=== PATIENT | female | born 1935 | race Caucasian/White ===

== ENCOUNTER 2020-06-22 11:29 | Inpatient (IN) | payer MEDICARE, BC ==
[2020-06-22] VITALS (14 sets, daily range): BP systolic 69–184; BP diastolic 41–61
[~2020-06-22] VITALS: Ht 152.4 cm; Wt 63.0 kg
--- NOTE | 2020-06-22 11:35 | NUR ---
[id number] FRM [facility] FOR COUGH/CONGESTION NOTED HYPOXIC ARRIVED ON NON REBREATHER AT 15L/MIN. RT AT BEDSIDE. PATIENT SUCTIONED BY RT. PLACED ON THE EXECUTIVE OFFICE MANAGER. VS STABLE.
--- NOTE | 2020-06-22 11:40 | NUR ---
IV LINE ESTABLISHED ON LEFT WRIST G20 AND RIGHT WRIST G20. BLOOD DRAWN AND SENT TO LAB.
--- NOTE | 2020-06-22 11:45 | NUR ---
PATIENTS O2 TITRATED DOWN TO 5LPM VIA NC WITH SPO2 OF 96%. PATIENT ANXIOUS, KEEP VERBALIZING SHE WANTS TO SLEEP. NEEDS ATTENDED. KEPT COMFORTABLE.
[2020-06-22] MEDS ORDERED: IV NS 0.9% 1,000 ML BAG IV ONE (12:00)
[2020-06-22] MEDS ORDERED: LORAZEPAM INJ 2 MG/ML VIAL ONE (12:05)
[2020-06-22] MEDS ORDERED: SERT25TA5 PO (12:09)
[2020-06-22] MEDS ORDERED: [UNRECOGNIZED DRUG - CODE] IJ (12:09)
[2020-06-22] MEDS ORDERED: BISA10SU61 RC (12:09)
[2020-06-22] MEDS ORDERED: ZINC220C6 PO (12:09)
[2020-06-22] MEDS ORDERED: MAGN400O6 PO (12:09)
[2020-06-22] MEDS ORDERED: L.AC1CAP6 PO (12:09)
[2020-06-22] MEDS ORDERED: SENN-175 PO (12:09)
[2020-06-22] MEDS ORDERED: LOPE2TAB25 PO (12:09)
[2020-06-22] MEDS ORDERED: ASCO500C17 PO (12:09)
[2020-06-22] MEDS ORDERED: AMIN887L BC (12:09)
[2020-06-22] MEDS ORDERED: ALPR0.5T8 PO (12:09)
[2020-06-22] MEDS ORDERED: GUAI-1189 PO (12:09)
[2020-06-22] MEDS ORDERED: LEVO50TA8 PO (12:09)
[2020-06-22] MEDS ORDERED: LIDO28.310 TP (12:09)
[2020-06-22] MEDS ORDERED: POLY17PO4 PO (12:09)
[2020-06-22] MEDS ORDERED: MULT-447 PO (12:09)
[2020-06-22] MEDS ORDERED: PRED5TAB48 PO (12:09)
[2020-06-22] MEDS ORDERED: HYDR-4384 PO (12:09)
[2020-06-22] MEDS ORDERED: IPRA4AER IH (12:09)
[2020-06-22] MEDS ORDERED: APIX2.5T PO (12:09)
[2020-06-22] MEDS ORDERED: NA P133E RC (12:09)
[2020-06-22] MEDS ORDERED: TRAM50TA2 PO (12:09)
[2020-06-22] MEDS ORDERED: TEMA15CA PO (12:09)
[2020-06-22] MEDS ORDERED: MELA1TAB9 PO (12:09)
[2020-06-22] MEDS ORDERED: DILT240C88 PO (12:09)
[2020-06-22] MEDS ORDERED: ACET325T53 PO (12:09)
--- NOTE | 2020-06-22 12:10 | NUR ---
COVID ANTIGEN SWAB SENT TO LAB.
[2020-06-22] MEDS ORDERED: LORAZEPAM INJ 2 MG/ML VIAL IV ONE (12:30)
--- NOTE | 2020-06-22 12:30 | NUR ---
URINE COLLECTED FROM WEISS AND SENT TO LAB.
[2020-06-22 12:43] LABS: BASOPHILS # (AUTO) 0.1 /CMM (0.0-0.2); BASOPHILS % (AUTO) 0.2 % (0.0-2.0); EOSINOPHILS % (AUTO) 0.9 % (0.0-6.0); HEMATOCRIT 21 % (33-45); LYMPHOCYTES # (AUTO) 0.5 /CMM (0.8-4.8); LYMPHOCYTES % (AUTO) 1.9 % (20.0-44.0); MEAN CORPUSCULAR HGB CONC 32 g/dl (31.0-36.0); MEAN CORPUSCULAR VOLUME 92 fL (82-100); MONOCYTES % (AUTO) 3.9 % (2.0-12.0); NEUTROPHILS # (AUTO) 24.4 /CMM (1.8-8.9); NEUTROPHILS % (AUTO) 93.1 % (43.0-81.0); PLATELET COUNT (AUTO) 443 /CMM (150-450); RED BLOOD CELL COUNT(AUTO) 2.31 MIL/uL (4.0-5.2); WHITE BLOOD COUNT (AUTO) 26.2 K/uL (4.3-11.0)
[2020-06-22 12:48] LABS: CALCIUM, SERUM 9.2 mg/dL (8.5-10.1); CARBON DIOXIDE 28 mmol/L (21-32); CHLORIDE 96 mmol/L (98-107); CREATININE 1.8 mg/dL (0.6-1.3); GLUCOSE 155 mg/dL (74-106); POTASSIUM 4.4 mmol/L (3.5-5.1); SODIUM SERUM 131 mmol/L (136-145)
[2020-06-22 12:50] LABS: UREA NITROGEN, BLOOD 129 mg/dL (7-18)
[2020-06-22 12:58] LABS: HEMOGLOBIN 6.8 g/dL (11.5-14.8)
[2020-06-22] MEDS ORDERED: VANCOMYCIN 1 GM in IV D5W 250 ML IV ONE (13:00)
[2020-06-22] MEDS ORDERED: LEVOFLOXACIN 750 MG /D5W 150ML 150 ML IV ONE (13:00)
--- NOTE | 2020-06-22 13:00 | NUR ---
EPIC TECHNICAL EDITOR PAGED.
[2020-06-22 13:02] LABS: ALANINE AMINOTRANSFERASE 44 U/L (12-78); ALBUMIN 2.1 g/dL (3.4-5.0); ALKALINE PHOSPHATASE 200 U/L (46-116); ASPARTATE AMINOTRANSFERASE 45 U/L (15-37); BILIRUBIN,DIRECT 0.1 mg/dL (0.0-0.2); BILIRUBIN,TOTAL 0.3 mg/dL (0.2-1.0); TOTAL PROTEIN, SERUM 6.2 g/dL (6.4-8.2)
[2020-06-22 13:11] LABS: LYMPHOCYTES % (MANUAL) 2 % (16-48); MONOCYTES % (MANUAL) 4 % (0-11.0); NEUTROPHILS % (MANUAL) 94 (42-76)
[2020-06-22 13:15] LABS: BILIRUBIN,URINE NEGATIVE (NEGATIVE); BLOOD, URINE SMALL Ery/uL (NEGATIVE); COLOR,URINE YELLOW (YELLOW); LEUKOCYTE ESTERASE ,URINE LARGE (NEGATIVE); NITRITE, URINE NEGATIVE (NEGATIVE); PH,URINE 5.5 (5.0-8.0); PROTEIN,URINE 30 mg/dl (NEGATIVE); UGLUCOSE NEGATIVE (NEGATIVE); UROBILINOGEN,URINE 0.2 EU/dL (0.2)
--- NOTE | 2020-06-22 13:22 | NUR ---
admit to room 203
--- NOTE | 2020-06-22 13:42 | NUR ---
REPORT GIVEN TO KAMRAN BARBOUR.
[2020-06-22 13:45] LABS: BACTERIA,URINE Moderate /HPF (None Seen); SQUAMOUS EPITHELIAL CELL,UR Moderate /HPF (None Seen); WBC,URINE TOO NUMEROUS TO COUN /HPF (0-3)
--- NOTE | 2020-06-22 14:10 | NUR ---
PT ARRIVED ONTO UNIT VIA BED WITH ER NURSES. PHONE REPORT GIVEN. ROOM EQUIPED WITH IV PUMPS, POLE, SUCTION EQUIPMENT, OXYGEN EQUIPMENT, TELE MONITOR AND LEADS. PT A/OX2. ANXIOUS AND NEEDS. SKIN ASSESS. PHOTOS TAKEN. SKIN WARM FLUSHED. WEISS INTACT. IVS PROTECTED WITH ARM SLEEVES. AWAITING ORDERS. WILL MONITOR OXYGENATION AND RESPIRATORY STATUS. TURN Q2H.
--- NOTE | 2020-06-22 14:18 | NUR ---
PATIENT ENDORSED TO KAMRAN RN, TRANSFERRED THE PATIENT VIA ACLS PROTOCOL. NO DISTRESS NOTED.
--- NOTE | 2020-06-22 14:19 | NUR ---
IV ANTIBIOTICS INFUSING TO FLOOR.
--- NOTE | 2020-06-22 14:47 | NUR ---
BED SIDE REPORT GIVEN TO EVELIN. PT INTUBATED DURING MANAGER UNIVERSITY. BS 131. 200 ML THICK RED SECRETIONS SUCTIONED. ENDOSCOPY SPECIALTY TECHNICIAN OSVALDO UPDATED TO SITUATION. FAMILY UPDATED TO SITUATION.
[2020-06-22] MEDS ORDERED: IV NS 0.9% 1,000 ML IV PRN (17:00)
[2020-06-22] MEDS ORDERED: ZOLPIDEM TARTRATE 5 MG TABLET PO PRN (17:00)
[2020-06-22] MEDS ORDERED: ONDANSETRON HCL/PF 4 MG/2 ML VIAL IVP PRN (17:00)
[2020-06-22] MEDS ORDERED: ALBUTEROL HALF STRENGTH 1.25 MG/3 ML VIAL.NEB NEB PRN (17:00)
[2020-06-22] MEDS ORDERED: Z GUARD REMEDY 2 OZ OINT TP PRN (17:00)
[2020-06-22] MEDS ORDERED: IPRATROPIUM NEB FS 0.5 MG/2.5 ML AMPUL.NEB NEB PRN (17:00)
[2020-06-22] MEDS ORDERED: FUROSEMIDE 40 MG/4 ML VIAL IV SCH (17:30)
[2020-06-22 18:14] LABS: ABG BASE EXCESS -1.4 mmol/L; ABG OXYGEN SATURATION 99.5 % (92.0-98.5); ABG PCO2 55.9 mmHg (35.0-45.0); ABG PH 7.278 (7.350-7.450); ABG PO2 168.1 mmHg (75.0-100.0); COHb 1.6 % (0.5-1.5); MetHb 0.3 % (0.0-1.5); O2Hb 97.6 % (94.0-97.0); SITE, ABG Right Radial; VENT MODE, BG AC 14 400 100% +5
--- NOTE | 2020-06-22 19:09 | NUR ---
WEAPONS SPECIALIST Patient intubated on 2nd floor by ER MD Delvalle @0333 due to report of desat to SPO2 70s. post intubation CXR done. ETT 7.5 @lip, AC 14 TV 400 FiO2 100%, PEEP 5. Order for ABG 15min after done per Dr. Delvalle order -> RT received orders for vent changes after ABG of titration FiO2 -> 80% and follow up ABG in two hrs @2014, order placed. small amount of blood suctioned from ETT. afib HR 120s-130 Mira Castaneda PICKED EDGE SEWING MACHINE OPERATOR aware stating patient has PO meds and she will reconcile. normotensive. temp 100.1F. PEG in place. lópez draining cloudy yellow urine. Sacral wound, protected, wound consult. L Leg edema 1+. Restraints on as patient waking up trying to pull ETT. (A/Ox2-3 per report). Mira aware. L wrist & L FA intact. midline order placed, nursing sup aware. propofol for sedation. type screen #1 complete, #2 in process laborer pie bakery at bedside. consent endorsed. 1 U blood ordered for hgb 6.8. stool OB order endorsed. patient deep suctioned by RT, small amount of blood draining from nostrils.
--- NOTE | 2020-06-22 19:15 | NUR ---
FULFILLMENT MAIL CLERK NOTES: RECEIVED INTUBATED PT IN BED RESTING COMFORTABLY. PATIENT IN NO S/SX OF ACUTE DISTRESS AT THIS TIME. NO SOB NOTED. PATIENT'S BREATHING IS EVEN AND UNLABORED. PATIENT ON MECHANICAL VENT; SETTINGS PRESCRIBED; PT TOLERATED WELL. AMBU BAG AT BED SIDE ALARMS SET PER PROTOCOL AND AUDIBLE. VENT PLUGGED IN TO RED OUTLET. NO DISTRESS NOTED. PATIENT ON TELE MONITORING READING SINUS TACHY HR IS @120s AT THE TIME OF RECEIVED. PATIENT HAS G TUBE FLUSHING AND PATENT; SITE CLEAN DRY AND INTACT; NO RESIDUAL NOTED; CLAMPED. PT IN NPO EXECEPT MEDS AT THIS TIME. NOTED IV SITE ON R WRIST AND R FA ; BOTH PATENT, INTACT AND FLUSHING WELL; NO S/S OF INFECTION OR INFILTRATION. WITH ONGOING DIPRIVAN @ 5MCG/KG/MIN RUNNING PER PROTOCOL. PATIENT HAS WEISS CATH IN PLACE, MINIMAL YELLOW CLOUDY URINE OUTPUT. BILATERAL SOFT WRIST RESTRAINTS IN PLACE, ASSESSED PER PROTOCOL. SAFETY MEASURES HAVE BEEN PROVIDED AND IMPLEMENTED. PATIENT BED ALARM IS ON. HEAD OF BED ELEVATED. BED IS LOCKED, IN LOWEST POSITION AND SIDE RAILS UP. CALL LIGHT WITHIN REACH OF THE PATIENT. APPLICABLE ISOLATION PRECAUTIONS IN PLACE. WILL CONTINUE TO MONITOR AND REASSESS FOR ANY CHANGES AND WILL CARRY OUT ANY ONGOING AND ACTIVE MD ORDER.
[2020-06-22] MEDS: PROPOFOL 100 ML IV PRN (19:40)
--- NOTE | 2020-06-22 19:40 | NUR ---
RN NOTES SCANNED MEDICATION ( DIPRIVAN/PROPFOL) @1940; MORNING SHIFT RN FAILED TO SCAN MEDICATION. RECEIVED PT WITH ONGOING DIPRIVAN INFUSION AT 5MC/KG/MIN. AWS SOLUTION ARCHITECT MADE AWARE. WILL CONTINUE TO MONITOR AND REASSESS FOR ANY CHANGES WITHIN THE SHIFT.
--- NOTE | 2020-06-22 19:47 | NUR ---
RN NOTES CALLED LAB SPOKE WITH MEME, CONFIRMED AND VERIFIED THAT THEY HAVE RECEIVED THE ORDER OF 1 UNIT OF PRBC, BUT THEY WILL NEED A RE-TYPE WHICH IS WILL BE IN PROCESS. RN ACKNOWLEDGED. SEM MANAGER MADE AWARE.
[2020-06-22] MEDS: PIPERACILLIN /TAZOBACTAM 3.375 G in IV D5W 100 ML IV SCH (20:29)
[2020-06-22 20:56] LABS: ABG BASE EXCESS -0.4 mmol/L; ABG OXYGEN SATURATION 99.2 % (92.0-98.5); ABG PCO2 39.3 mmHg (35.0-45.0); ABG PH 7.407 (7.350-7.450); ABG PO2 141.6 mmHg (75.0-100.0); AaDO2 387.5 mmHg; COHb 1.4 % (0.5-1.5); MetHb 0.3 % (0.0-1.5); O2Hb 97.5 % (94.0-97.0); PEEP,BG 5 cm H2O; SITE, ABG Right Brachial; VENT MODE, BG AC 14 400 80% +5; VT, ABG 400 mL
--- NOTE | 2020-06-22 21:50 | NUR ---
RN NOTES NOTED THAT PT'S IV ACCESS/LINE ON THE R WRIST IS LEAKING. CUSTOMER SERVICES SUPERVISOR MADE AWARE. WILL FACILITATE REMOVAL OF R WRIST IV ACCESS AND WILL FACILITATE INSERTION OF IV ACCESS ON THE L WRIST. INSERTION DONE AT L WRIST # 20. MADE SURE LINE IS PATENT AND FLUSHING WELL. CUSTOMER SERVICES SUPERVISOR MADE AWARE. WILL CONTINUE TO MONITOR AND ASSESS THROUGHOUT THE END OF SHIFT.
--- NOTE | 2020-06-22 22:00 | NUR ---
RN NOTES NOTED PT'S TEMP 100.1@2200. COOLING MEASURES WILL BE PROVIDED AND WILL SECURE FOR PRN MEDS FROM KILO REGALADO. CHERRY DIPPER MADE AWARE. WILL RE-EVALUATE AFTER 30 MINUTES- 1 HOUR. WILL CONTINUE TO MONITOR AND REASSESS FOR ANY CHANGES THROUGHOUT THE SHIFT.
--- NOTE | 2020-06-22 22:10 | NUR ---
RN NOTES CALLED AND COMMUNICATED WITH KILO REGALADO, ADVISE THAT PT'S TEMPT IS AT 100.1 , KILO REGALADO SAID TO PUT ON HOLD BLOOD TRANSFUSION AND GIVE TYLENOL 500MG/1 TAB PRN Q6H AND TO CONTINUE COOLING MEASURES. CLIENT DELIVERY SPECIALIST MADE AWARE. WILL CARRY OUT ORDER AND WILL CONTINUE TO MONITOR AND REASSESS FOR ANY CHANGES THROUGHOUT THE SHIFT.
[2020-06-22] MEDS ORDERED: ACETAMINOPHEN ES 500 MG TABLET PO PRN (22:30)
--- NOTE | 2020-06-22 23:15 | NUR ---
RN NOTES ADMINISTERED DUE MEDS ( PRN MEDS OF TYLENOL 500MG/1TAB) VIA G TUBE, PRIOR TO ADMINISTRATION RN CHECK FOR PATENCY VIA FLUSHING. G TUBE NOTED TO BE INTACT, PATENT AND FLUSHING WELL. BLADIMIR BARBOUR MADE AWARE. WILL CONTINUE TO MONITOR AND REASSESS FOR ANY CHANGES THROUGHOUT THE SHIFT Addendum: 06/23/20 at 0112 by MARIO KILGORE RN AT 2330 PT'S TEMP IS AT 99.0 WILL CONTINUE TO PROVIDE COOLING MEASURE AND CONTINUE TO MONITOR. BLADIMIR BARBOUR MADE AWARE
[2020-06-23] VITALS (87 sets, daily range): BP systolic 83–139; BP diastolic 23–75
--- NOTE | 2020-06-23 | NUR ---
KM NOTES NOTED PT'S TEMP 100@0000. WILL CONTINUE TO PROVIDE COOLING MEASURES BLADIMIR BARBOUR MADE AWARE. WILL RE-EVALUATE AFTER 30 MINUTES- 1 HOUR.WILL CONTINUE TO MONITOR AND REASSESS FOR ANY CHANGES THROUGHOUT THE SHIFT. Addendum: 06/23/20 at 0158 by MARIO KILGORE RN AT 0100 PT'S TEMP IS AT 99.5 WILL CONTINUE TO PROVIDE COOLING MEASURE AND CONTINUE TO MONITOR. BLADIMIR BARBOUR MADE AWARE
[2020-06-23] MEDS: PROPOFOL 100 ML IV PRN (03:01)
--- NOTE | 2020-06-23 04:21 | NUR ---
RN NOTES INFORMED KILO REGALADO THAT PT'S TEMP @0400 IS AT 98.4, AND IF SHE WANTS TO PROCEED WITH THE BT OF 1 PRBC AT THIS TIME. SHE SAID OK TO PROCEED WITH THE BLOOD TRANSFUSION AND KEEP MONITORING. COAGULATING BATH OPERATOR MADE AWARE. WILL CARRY OUT ORDERED.
--- NOTE | 2020-06-23 05:10 | NUR ---
RN NOTES STARTED 1 BAG OF PRBC ORDERED AND ADMINISTERED PER PROTOCOL. INITIAL VITAL SIGNS TAKEN AND RECORDED; WILL CONTINUE TO MONITOR FOR ANY BLOOD TRANSFUSION REACTION AND ADDRESS NEEDED FRONT END SOFTWARE DEVELOPER MADE AWARE.
--- NOTE | 2020-06-23 05:50 | NUR ---
RT NOTE Pt rec'd orally intubated via ETT #7.5 secured @ 23CM at the upper lip line. Pt on [facility] vent on AC mode. Pt shows no signs of resp distress or sob. ETT is patent and secured. sx'd for thick large amt of yellow secretions. Alarms are set and audible. vent plugged into red outlet. ambu bag bedside. Will continue to monitor closely. Addendum: 06/23/20 at 0551 by HANNY MAC RT Amended: Links added.
[2020-06-23 05:53] LABS: BASOPHILS % (AUTO) 0.1 % (0.0-2.0); LYMPHOCYTES # (AUTO) 0.2 /CMM (0.8-4.8); LYMPHOCYTES % (AUTO) 0.6 % (20.0-44.0); MEAN CORPUSCULAR HGB CONC 33 g/dl (31.0-36.0); MEAN CORPUSCULAR VOLUME 91 fL (82-100); MONOCYTES # (AUTO) 0.5 /CMM (0.1-1.30); MONOCYTES % (AUTO) 1.7 % (2.0-12.0); NEUTROPHILS # (AUTO) 30.2 /CMM (1.8-8.9); NEUTROPHILS % (AUTO) 97.6 % (43.0-81.0); PLATELET COUNT (AUTO) 330 /CMM (150-450); RED BLOOD CELL COUNT(AUTO) 2.02 MIL/uL (4.0-5.2)
[2020-06-23 05:55] LABS: WHITE BLOOD COUNT (AUTO) 30.9 K/uL (4.3-11.0)
--- NOTE | 2020-06-23 05:55 | NUR ---
RN NOTES RECEIVED CALL FROM LAB, SPOKE WITH DIONICIO CRITICAL VALUE FOR WBC 30.9. WILL ADVISE KILO REGALADO TO SECURE FOR ANY NECESSARY ORDER. TRUSS DESIGNER MADE AWARE.
[2020-06-23 05:56] LABS: HEMATOCRIT 18 % (33-45)
--- NOTE | 2020-06-23 05:56 | NUR ---
RN NOTES CALLED AND COMMUNICATED WITH KILO REGALADO, ENDORSED PT'S CRITICAL VALUE FOR WBC@30.9. ADVISED HER THAT PTS ALREADY IN ZOSYN AND WILL BE STARTING VANCO TODAY THIS 9AM. KILO REGALADO SAID TO START VANCO THIS AM, THEN F/U WITH ID AND RECHECK CBC THIS AFTERNOON. WILL INFORM FINAL INSPECTOR AND TESTER AND WILL CARRY OUR ORDER REQUESTED.
[2020-06-23 06:07] LABS: CALCIUM, SERUM 8.4 mg/dL (8.5-10.1); CARBON DIOXIDE 25 mmol/L (21-32); CHLORIDE 95 mmol/L (98-107); GLUCOSE 89 mg/dL (74-106); PHOSPHORUS 2.3 mg/dL (2.5-4.9); POTASSIUM 4.8 mmol/L (3.5-5.1); SODIUM SERUM 128 mmol/L (136-145)
[2020-06-23 06:10] LABS: UREA NITROGEN, BLOOD 130 mg/dL (7-18)
[2020-06-23 06:14] LABS: CHOLESTEROL 87 mg/dL (<200); HDL CHOLESTEROL 47 mg/dL (40-60); LDL 31 mg/dL (0-99); TRIGLYCERIDES 91 mg/dL (30-150)
[2020-06-23] MEDS ORDERED: PHENYLEPHRINE 50 MG in IV NS 0.9% 245 ML IV PRN (06:30)
[2020-06-23] MEDS: HYDROCORTISONE SOD SUCCINATE 100 MG/2 ML VIAL IV SCH ×3 (06:38→20:12)
--- NOTE | 2020-06-23 06:45 | NUR ---
RN NOTES RECEIVED CALL FROM DR. SOLER PER LAW OFFICE MANAGER, DR. SOLER WANTS TO START NEOSYNEPHERINE 50MG IN IV .9NS 250ML 245ML PER MD, NEED TO START PT BP <100 (SYSTOLIC). ORDER PLACED AND WILL CARRY OUT ORDERED. CALLED KILO REGALADO FOR HEADS UP. KILO REGALADO ACKNOWLEDGED. LAW OFFICE MANAGER WELL AWARE OF THIS MATTER.
--- NOTE | 2020-06-23 07:05 | NUR ---
AGRICULTURAL SALES REPRESENTATIVE NOTES RECEIVED PT ON BED, INTUBATED AND SEDATED ON DIPRIVAN AT 40MCG/KG/HR AT THIS TIME , TOLERATING VENT SETTING WELL, O2 SAT WNL , NO SIGNS OF ACUTE DISTRESS NOTED, BREATHING EVEN AND UNLABORED. HR IN 120'S, PT IS NPO EXCEPTS MEDS. WEISS DRAINING TO GRAVITY, SIDE RAILS UPx3, BED LOCKED AND IN LOWEST POSITION , CONTINUE TO MONITOR .
--- NOTE | 2020-06-23 07:18 | NUR ---
RN NOTES ENDED INFUSION AT 0717, NO TRANSFUSION REACTION NOTED. VITAL SIGNS TAKEN AND RECORDED. LIFE SCIENTIST MADE AWARE. WILL CONTINUE TO MONITOR AND REASSESS FOR ANY TRANSFUSION REACTION POST PROCEDURE.WILL ENDORSE TO AM SHIFT TO WATCH OUT FOR ANY BT REACTIONS
[2020-06-23 07:26] LABS: BAND % (MANUAL) 10 % (0.0-5.0); LYMPHOCYTES % (MANUAL) 2 % (16-48); MONOCYTES % (MANUAL) 1 % (0-11.0); NEUTROPHILS % (MANUAL) 87 (42-76)
--- NOTE | 2020-06-23 07:32 | NUR ---
TRAVELING PHLEBOTOMIST NOTES PATIENT RESTING IN BED COMFORTABLY,PT STILL SEDATED WELL WITH 40 MCG/KG/M OF DIPRIVAN. TOLERATING VENT SETTINGS ORDERED. NO SIGNS OF ACUTE DISTRESS. BREATHING EVEN AND UNLABORED. TELE MONITORS READING ST 120s. VITAL SIGNS TAKEN AND RECORDED SCHEDULED. PT STILL ON NPO EXECEPT MEDS. ALL IV LINES REMAINED PATENT AND INTACT WITHIN END OF SHIFT. WILL ENDORSE TO AM SHIFT TO F/U WITH ID PER KILO REGALADO AND TO START TO NEOSYNEPHERINE 50MG IN IV .9NS 250ML 245ML PER ORDER OF DR. SOLER FOR BP <100 ( SYSTOLIC). SAFETY PRECAUTIONS IN PLACE WITH BED IN LOWEST POSITION, CALL LIGHT WITHIN REACH, BREAKS ON, SIDE RAILS UP. ALL NEEDS ATTENDED TO; SHIFT ASSESSMENT/BEDBATH/SKIN/WOUND CARE DONE. PATIENT KEPT CLEAN AND DRY. WILL ENDORSE TO ONCOMING SHIFT FOR NORIS WITH ALL PERTINENT INFO REGARDING PATIENT STATUS.
[2020-06-23] MEDS ORDERED: Sodium Phosphate 30 MMOL in IV NS 0.9% 250 ML IV SCH (08:00)
--- NOTE | 2020-06-23 08:02 | NUR ---
WOUND CARE CONSULT: REVIEWED CHART, NURSING DOCUMENTATION AND PHOTOS WHICH INDICATE SACRAL WOUND AND RT LOWER LEG WOUND, PRESENT ON ADMISSION. RECOMMEND SURGICAL AND DPM CONSULTS. DR URIAS AND DR BOYCE NOTIFIED OF CONSULT REQUESTS. RECOMMENDATIONS MADE FOR SKIN PROTECTION. DISCUSSED WITH NURSING STAFF. MD IN AGREEMENT WITH PLAN OF CARE. PT IS ON WARNERS ISOFLEX LOW AIRLOSS BED.
[2020-06-23] MEDS: PHENYLEPHRINE 50 MG in IV NS 0.9% 245 ML IV PRN ×2 (08:06→21:07)
[2020-06-23] MEDS: PIPERACILLIN /TAZOBACTAM 3.375 G in IV D5W 100 ML IV SCH ×2 (08:24→20:00)
[2020-06-23] MEDS ORDERED: VANCOMYCIN HCL 0.75 GM in IV D5W 250 ML IV SCH (09:00)
[2020-06-23] MEDS ORDERED: ETOMIDATE 2 MG/ML VIAL IV ONE (09:12)
[2020-06-23] MEDS ORDERED: SUCCINYLCHOLINE CHLORIDE 20 MG/ML VIAL IV ONE (09:12)
[2020-06-23] MEDS: PANTOPRAZOLE 40 MG VIAL IV SCH (09:13)
[2020-06-23 09:47] LABS: BASOPHILS # (AUTO) 0.3 /CMM (0.0-0.2); BASOPHILS % (AUTO) 0.6 % (0.0-2.0); HEMATOCRIT 26 % (33-45); HEMOGLOBIN 8.1 g/dL (11.5-14.8); LYMPHOCYTES # (AUTO) 0.2 /CMM (0.8-4.8); LYMPHOCYTES % (AUTO) 0.6 % (20.0-44.0); MEAN CORPUSCULAR HGB CONC 32 g/dl (31.0-36.0); MEAN CORPUSCULAR VOLUME 94 fL (82-100); MONOCYTES # (AUTO) 0.7 /CMM (0.1-1.30); MONOCYTES % (AUTO) 1.7 % (2.0-12.0); NEUTROPHILS # (AUTO) 39.9 /CMM (1.8-8.9); NEUTROPHILS % (AUTO) 97.1 % (43.0-81.0); PLATELET COUNT (AUTO) 325 /CMM (150-450); RED BLOOD CELL COUNT(AUTO) 2.73 MIL/uL (4.0-5.2)
[2020-06-23 09:59] LABS: WHITE BLOOD COUNT (AUTO) 41.1 K/uL (4.3-11.0)
--- NOTE | 2020-06-23 10:51 | NUR ---
RN NOTES DR ROCHA NOTIFED REGARDING WBC 41.1, NO NEW ORDER GIVEN , CONTINUE TO MONITOR
[2020-06-23 11:31] LABS: LYMPHOCYTES % (MANUAL) 2 % (16-48); MONOCYTES % (MANUAL) 3 % (0-11.0); NEUTROPHILS % (MANUAL) 95 (42-76)
[2020-06-23] MEDS: PROPOFOL 10MG/ML 50ML 50 ML IV PRN ×5 (12:20→22:26)
--- NOTE | 2020-06-23 14:46 | NUR ---
RN NOTES PT HR STILL IN 120-130'S, CRYSTAL /KURT , DR. SOLER NOTIFED, NEW ORDER RECEIVED ,
[2020-06-23] MEDS ORDERED: AMIODARONE 150 MG in IV D5W 100 ML IV ONE (15:00)
[2020-06-23] MEDS: AMIODARONE 450 MG in IV D5W 250 ML IV PRN ×2 (15:57→23:58)
--- NOTE | 2020-06-23 18:00 | NUR ---
RN NOTES PT REMAINS INTUBATED AND SEDATED , ON DIPRIVAN AT 40 MCG/KG/MIN, SAULO AT 1 MCG/KG/ MIN , AMIO AT 1MG/MIN RUNNING VIA R UPPER ARM PICC LINE SITE, SR UP X3, CALL LIGHT WITHIN EASY REACH, BED LOCKED AND IN LOWEST POSITION, WILL ENDORSE TO APPLICATION ASSISTANT NURSE FOR CONTINUITY OF CARE .
[2020-06-23 19:24] LABS: CREATININE, URINE < 13.0 MG/DL (30.0-125.0); URINE SODIUM, RANDOM 11 mmol/l (40-220); URINE TOTAL PROTEIN 35.1 mg/dL (0-11.9)
[2020-06-23 19:48] LABS: BILIRUBIN,URINE NEGATIVE (NEGATIVE); BLOOD, URINE MODERATE Ery/uL (NEGATIVE); COLOR,URINE YELLOW (YELLOW); LEUKOCYTE ESTERASE ,URINE TRACE (NEGATIVE); NITRITE, URINE NEGATIVE (NEGATIVE); PH,URINE 5.5 (5.0-8.0); PROTEIN,URINE TRACE mg/dl (NEGATIVE); UGLUCOSE NEGATIVE (NEGATIVE); UROBILINOGEN,URINE 0.2 EU/dL (0.2)
--- NOTE | 2020-06-23 19:55 | NUR ---
ICU/OVERNIGHT ASSOCIATE CHEM WAS DONE FOR POTASSIUM LEVEL. DUE TO POTASSIUM LEVEL BEING 3.2. AWAIT FOR RESULTS. Addendum: 06/23/20 at 2231 by ZACHARY NELSONN WRONG PT
[2020-06-23] MEDS: DAKINS QUARTER STRENGTH (0.125%) 480 ML BOTTLE TOP SCH (20:25)
--- NOTE | 2020-06-23 20:30 | NUR ---
ICU/BEEF FARMER POTASSIUM LEVEL WAS 3.6, NO NEED TO GIVE REPLACEMENT. Addendum: 06/23/20 at 2232 by ZACHARY MARADIAGA LVN WRONG PT
[2020-06-23 20:45] LABS: BACTERIA,URINE RARE /HPF (None Seen); SQUAMOUS EPITHELIAL CELL,UR 0-2 /HPF (None Seen)
[2020-06-23 20:46] LABS: YEAST,URINE Few /HPF (None Seen)
[2020-06-23 21:03] LABS: EOSINOPHIL,URINE None Seen
--- NOTE | 2020-06-23 21:30 | NUR ---
ICU/LPN PER DIEM NOTIFED CHARGE NURSE THAT PT'S BLOOD PRESSURE WAS STABLE 120'S, PT CURRENTLY ON SAULO AT 1MCG, THIS WILL BE LOWERED DOWN TO 0.9MCG. WILL CONTINUE TO MONITOR THIS PT AND HER BLOOD PRESSURE.
--- NOTE | 2020-06-23 22:02 | NUR ---
ICU/LAPPER CONSENT WAS OBTAINED FROM DAUGHTER FOR SERIAL SACRAL DEBREMENT, WITH WITNESS NURSE RENITA Green. THIS WAS PLACED IN THE CHART
--- NOTE | 2020-06-23 22:34 | NUR ---
ICU/BARREL LINER AMI WAS DECREASED DOWN TO 0.5 FROM 1MG. WILL CONTINUE TO MONITOR THIS PT AND HER HEART RATE.
--- NOTE | 2020-06-23 23:45 | NUR ---
RT NOTE Pt rec'd orally intubated via ETT #7.5 secured @ 23CM at the upper lip line. Pt on [facility] vent on AC mode. Pt shows no signs of resp distress or sob. ETT is patent and secured. sx'd for thick mod amt of yellow secretions. Alarms are set and audible. vent plugged into red outlet. ambu bag bedside. Will continue to monitor closely. Addendum: 06/23/20 at 2345 by HANNY MAC RT Amended: Links added.
[2020-06-24] VITALS (82 sets, daily range): BP systolic 91–133; BP diastolic 38–76
[2020-06-24] MEDS: PROPOFOL 10MG/ML 50ML 50 ML IV PRN ×7 (02:09→21:10)
[2020-06-24 04:21] LABS: BASOPHILS # (AUTO) 0.1 /CMM (0.0-0.2); BASOPHILS % (AUTO) 0.2 % (0.0-2.0); HEMATOCRIT 23 % (33-45); HEMOGLOBIN 7.4 g/dL (11.5-14.8); LYMPHOCYTES # (AUTO) 0.2 /CMM (0.8-4.8); LYMPHOCYTES % (AUTO) 0.5 % (20.0-44.0); MEAN CORPUSCULAR HGB CONC 32 g/dl (31.0-36.0); MEAN CORPUSCULAR VOLUME 91 fL (82-100); MONOCYTES # (AUTO) 0.8 /CMM (0.1-1.30); MONOCYTES % (AUTO) 1.9 % (2.0-12.0); NEUTROPHILS # (AUTO) 42.6 /CMM (1.8-8.9); NEUTROPHILS % (AUTO) 97.4 % (43.0-81.0); PLATELET COUNT (AUTO) 354 /CMM (150-450); RED BLOOD CELL COUNT(AUTO) 2.52 MIL/uL (4.0-5.2)
[2020-06-24 04:35] LABS: WHITE BLOOD COUNT (AUTO) 43.8 K/uL (4.3-11.0)
[2020-06-24 04:37] LABS: ALANINE AMINOTRANSFERASE 35 U/L (12-78); ALBUMIN 1.6 g/dL (3.4-5.0); ALKALINE PHOSPHATASE 89 U/L (46-116); ASPARTATE AMINOTRANSFERASE 46 U/L (15-37); BILIRUBIN,TOTAL 0.5 mg/dL (0.2-1.0); CALCIUM, SERUM 8.4 mg/dL (8.5-10.1); CARBON DIOXIDE 23 mmol/L (21-32); CHLORIDE 97 mmol/L (98-107); GLUCOSE 107 mg/dL (74-106); MAGNESIUM 2.3 mg/dL (1.8-2.4); PHOSPHORUS 5.2 mg/dL (2.5-4.9); POTASSIUM 4.3 mmol/L (3.5-5.1); SODIUM SERUM 132 mmol/L (136-145); TOTAL PROTEIN, SERUM 5.6 g/dL (6.4-8.2)
[2020-06-24 04:38] LABS: UREA NITROGEN, BLOOD 124 mg/dL (7-18)
[2020-06-24 04:41] LABS: CREATINE KINASE, TOTAL 94 U/L (26-192)
[2020-06-24] MEDS: HYDROCORTISONE SOD SUCCINATE 100 MG/2 ML VIAL IV SCH ×3 (04:54→21:10)
[2020-06-24 05:02] LABS: BAND % (MANUAL) 11 % (0.0-5.0); LYMPHOCYTES % (MANUAL) 1 % (16-48); MONOCYTES % (MANUAL) 1 % (0-11.0); NEUTROPHILS % (MANUAL) 87 (42-76)
--- NOTE | 2020-06-24 06:04 | NUR ---
ICU/LANGUAGE THERAPIST STOOL SENT IN FOR STOOL OB, AWAIT FOR RESULTS.
--- NOTE | 2020-06-24 06:12 | NUR ---
ICU/GERIATRIC SOCIAL WORK PROFESSOR THROUGHOUT THE SHIFT CHARGE NURSE WAS ABLE TO TITRATE DOWN SAULO FROM 1.0MCG TO 0.3MCG. WILL CONTINUE TO MONITOR THIS PT AND HER BLOOD PRESSURE.
--- NOTE | 2020-06-24 07:05 | NUR ---
RN NOTES RECEIVED PT ON BED, INTUBATED AND SEDATED ON DIPRIVAN AT 40MCG/KG/HR AT THIS TIME , TOLERATING VENT SETTING WELL, O2 SAT WNL , NO SIGNS OF ACUTE DISTRESS NOTED, BREATHING EVEN AND UNLABORED. HR IN LOW 100'S , SAULO AT .3 MCG/KG/MIN , AMIO AT .5 MG/MIN RUNNING VIA R UPPER ARM PICC LINE , SITE CLEAN ,DRY AND INTACT, PT IS NPO EXCEPTS MEDS. WEISS DRAINING TO GRAVITY, SIDE RAILS UPx3, BED LOCKED AND IN LOWEST POSITION , CONTINUE TO MONITOR .
[2020-06-24] MEDS ORDERED: ALBUTEROL FS 2.5 MG/3 ML VIAL.NEB NEB SCH (07:35)
[2020-06-24] MEDS ORDERED: IPRATROPIUM NEB FS 0.5 MG/2.5 ML AMPUL.NEB NEB SCH (07:35)
[2020-06-24] MEDS: VANCOMYCIN HCL 0.75 GM in IV D5W 250 ML IV SCH (08:28)
[2020-06-24] MEDS: PIPERACILLIN /TAZOBACTAM 3.375 G in IV D5W 100 ML IV SCH ×2 (08:28→19:11)
[2020-06-24] MEDS: PANTOPRAZOLE 40 MG VIAL IV SCH ×2 (08:28→21:10)
[2020-06-24] MEDS: DAKINS QUARTER STRENGTH (0.125%) 480 ML BOTTLE TOP SCH (08:29)
[2020-06-24 08:49] LABS: ABG BASE EXCESS -2.2 mmol/L; ABG OXYGEN SATURATION 98.5 % (92.0-98.5); ABG PCO2 36.2 mmHg (35.0-45.0); ABG PH 7.406 (7.350-7.450); ABG PO2 107.4 mmHg (75.0-100.0); AaDO2 136.2 mmHg; COHb 2.4 % (0.5-1.5); MetHb 0.1 % (0.0-1.5); SITE, ABG Right Radial; VENT MODE, BG AC 14 400 40% +5
[2020-06-24 08:56] LABS: OCCULT BLOOD STOOL POSITIVE (NEGATIVE)
--- NOTE | 2020-06-24 09:00 | NUR ---
RN NOTES HR IN 40'S-50'S, DR RYDER FELIPE , KATIANA WATERMAN D/SHAWNEE PER MD ORDER , CONTINUE TO MONITOR .
[2020-06-24] MEDS ORDERED: PANTOPRAZOLE 80 MG in IV NS 0.9% 500 ML IV PRN (14:30)
--- NOTE | 2020-06-24 15:00 | NUR ---
RN NOTES DR JOSEFINA JURADOITFED REGARDING STOOL POSITIVE FOR OB . NO NEW ORDER GIVEN CONTINUE TO MONITOR .
--- NOTE | 2020-06-24 16:41 | NUR ---
RN NOTES DR ROCHA NOITFED REGARDING ESBL IN THE URINE, NO NEW ORDER GIVEN .CONTINUE TO MONITOR .
--- NOTE | 2020-06-24 18:40 | NUR ---
RN NOTES PT REMAINS INTUBATED AND SEDATED , ON DIPRIVAN AT 40 MCG/KG/MIN, SAULO OFF AND BP STABLE AT THIS TIME, R UPPER ARM PICC LINE SITE CLEAN ,DRY AND INTACT, HR IN 50'S , O2 SAT WNL, SR UP X3, CALL LIGHT WITHIN EASY REACH, BED LOCKED AND IN LOWEST POSITION, WILL ENDORSE TO CONTINUOUS PROCESS MACHINE OPERATOR NURSE FOR CONTINUITY OF CARE .
--- NOTE | 2020-06-24 19:20 | NUR ---
ICU/US ADMINISTRATIVE LAW JUDGE PT IS VERY SEDATED, CHARGE NURSE DECREASED THE SEDATION DOWN TO 35MCG FROM 40. WILL CONTINUE TO MONITOR THE PT AND HER SEDATION.
--- NOTE | 2020-06-24 19:45 | NUR ---
ICU/AVIONICS SHOP SUPERVISOR RECEIVED REPORT FROM DAY NURSE. SEE FLOWSHEET FOR ASSESSMENT,SKIN ISSUES ARE ADDRESSED ON FLOWSHEET ALONG WITH INTERVENTIONS TO EACH. PT IS SEDATION, SEE FLOWSHEET FOR ASSESSMENT. PT IS ON ORALLY INTUBATED ON VENT, TOLERATING THIS WELL WITH SATURATION AT 100%. PT WAS TURN AND REPOSITION FOR COMFORT AND CARE. WILL CONTINUE TO MONITOR THIS PT, NO ACUTE DISTRESS SEEN AT THIS TIME.
[2020-06-24] MEDS: MUPIROCIN OINT 2% 22 GM TUBE NS SCH (21:37)
--- NOTE | 2020-06-24 22:00 | NUR ---
ICU/GLASS PRESSER PT WAS GIVEN ORAL CARE AT THIS TIME , ALONG WITH PM CARE. PT TOLERATED THIS WELL. PT REMAINS ON CURRENT VENT SETTINGS WITH SATURATION AT 100%. WILL CONTINUE TO MONITOR THIS PT AND HER SATURATION. PT WAS THEN TURNED AND REPOSITIONED FOR COMFORT AND CARE, NO ACUTE DISTRESS SEEN AT THIS TIME.WILL CONTINUE TO MONITOR THIS PT.
[2020-06-25] VITALS (63 sets, daily range): BP systolic 91–171; BP diastolic 36–88
[2020-06-25] MEDS: PROPOFOL 10MG/ML 50ML 50 ML IV PRN ×7 (00:25→22:24)
--- NOTE | 2020-06-25 02:10 | NUR ---
ICU/SUPERVISOR METAL FURNITURE ASSEMBLY PT WAS GIVEN ORAL CARE AT THIS TIME , ALONG WITH AM CARE. PT TOLERATED THIS WELL. PT REMAINS ON CURRENT VENT SETTINGS WITH SATURATION AT 100%. WILL CONTINUE TO MONITOR THIS PT AND HER SATURATION. PT WAS THEN TURNED AND REPOSITIONED FOR COMFORT AND CARE, NO ACUTE DISTRESS SEEN AT THIS TIME.WILL CONTINUE TO MONITOR THIS PT.
--- NOTE | 2020-06-25 04:00 | NUR ---
ICU/CHEMICAL PROJECT ENGINEER AM LABS WERE DONE , AWAIT FOR ANY CRITICAL LAB VALUES.
[2020-06-25] MEDS: HYDROCORTISONE SOD SUCCINATE 100 MG/2 ML VIAL IV SCH ×3 (04:13→21:00)
[2020-06-25 04:43] LABS: BASOPHILS % (AUTO) 0.1 % (0.0-2.0); EOSINOPHILS % (AUTO) 0.1 % (0.0-6.0); LYMPHOCYTES # (AUTO) 0.2 /CMM (0.8-4.8); LYMPHOCYTES % (AUTO) 0.7 % (20.0-44.0); MEAN CORPUSCULAR HGB CONC 33 g/dl (31.0-36.0); MEAN CORPUSCULAR VOLUME 91 fL (82-100); MONOCYTES # (AUTO) 0.5 /CMM (0.1-1.30); MONOCYTES % (AUTO) 1.8 % (2.0-12.0); NEUTROPHILS # (AUTO) 24.4 /CMM (1.8-8.9); NEUTROPHILS % (AUTO) 97.3 % (43.0-81.0); PLATELET COUNT (AUTO) 273 /CMM (150-450); RED BLOOD CELL COUNT(AUTO) 2.04 MIL/uL (4.0-5.2); WHITE BLOOD COUNT (AUTO) 25.1 K/uL (4.3-11.0)
[2020-06-25 04:48] LABS: HEMATOCRIT 19 % (33-45); HEMOGLOBIN 6.1 g/dL (11.5-14.8)
[2020-06-25 04:56] LABS: CALCIUM, SERUM 7.8 mg/dL (8.5-10.1); CARBON DIOXIDE 22 mmol/L (21-32); CHLORIDE 99 mmol/L (98-107); GLUCOSE 106 mg/dL (74-106); MAGNESIUM 2.4 mg/dL (1.8-2.4); PHOSPHORUS 5.9 mg/dL (2.5-4.9); POTASSIUM 3.7 mmol/L (3.5-5.1); SODIUM SERUM 135 mmol/L (136-145)
[2020-06-25 04:57] LABS: UREA NITROGEN, BLOOD 128 mg/dL (7-18)
[2020-06-25 05:09] LABS: LYMPHOCYTES % (MANUAL) 3 % (16-48); MONOCYTES % (MANUAL) 2 % (0-11.0); NEUTROPHILS % (MANUAL) 95 (42-76)
--- NOTE | 2020-06-25 05:20 | NUR ---
ICU/WIRE REPAIRER EKG DONE TO SEE WHAT UNDERLINE HEART RYTHEM WAS WHICH WAS JUNCTIONAL.
--- NOTE | 2020-06-25 06:22 | NUR ---
ICU/BUTCHER ASSISTANT 0445- CRITICAL H/H OF 6.08/22 0500- CALLED LEATHER STRIPPING MACHINE OPERATOR LENIN Rushing ORDERS RECIEVED, PLACED INTO COMPUTER FOR 1 UNIT PRBC. 0530- PT IS TYPED AND CROSS.
[2020-06-25] MEDS: PIPERACILLIN /TAZOBACTAM 3.375 G in IV D5W 100 ML IV SCH ×2 (07:41→20:05)
--- NOTE | 2020-06-25 07:45 | NUR ---
RN OPENING NOTES RECEIVED PT ON BED, INTUBATED AND SEDATED ON DIPRIVAN AT 35MCG/KG/HR AT THIS TIME , TOLERATING VENT SETTING WELL, O2 SAT WNL , NO SIGNS OF SOB OR ACUTE DISTRESS NOTED, BREATHING EVEN AND UNLABORED. HR IN LOW 100'S , R UPPER ARM PICC LINE , SITE CLEAN ,DRY AND INTACT NO S/S OF INFILTRATION OR INFECTION NOTED , PT IS NPO EXCEPTS MEDS. WEISS DRAINING TO GRAVITY,SAFETY MEASUREMENTS ARE IMPLEMENTED PER HOSPITAL POLICY SIDE RAILS UPx3, BED LOCKED AND IN LOWEST POSITION , CONTINUE TO MONITOR .
[2020-06-25] MEDS: MUPIROCIN OINT 2% 22 GM TUBE NS SCH ×2 (07:57→21:02)
[2020-06-25] MEDS: DAKINS QUARTER STRENGTH (0.125%) 480 ML BOTTLE TOP SCH (07:58)
[2020-06-25] MEDS: VANCOMYCIN HCL 0.75 GM in IV D5W 250 ML IV SCH (08:22)
--- NOTE | 2020-06-25 08:23 | NUR ---
RN NOTES CALLED LAB TOLD ME THAT BLOOD IS READY GABE TO PICK IT UP
[2020-06-25 08:24] LABS: ABG BASE EXCESS -1.6 mmol/L; ABG OXYGEN SATURATION 98.9 % (92.0-98.5); ABG PCO2 29.4 mmHg (35.0-45.0); ABG PH 7.484 (7.350-7.450); ABG PO2 125.8 mmHg (75.0-100.0); AaDO2 125.6 mmHg; MetHb 0.4 % (0.0-1.5); O2Hb 96.5 % (94.0-97.0); SITE, ABG Right Radial; VENT MODE, BG AC 14 400 40% +0
[2020-06-25] MEDS: PANTOPRAZOLE 40 MG VIAL IV SCH ×2 (08:27→21:00)
[2020-06-25] MEDS ORDERED: DOSING PER PHARMACY-AMIKACI IV XX PRN (09:00)
--- NOTE | 2020-06-25 09:45 | NUR ---
RN NOTES STARTED BLOOD PT IS TOLERATING WELL. NO SOB OR DISTRESS NOTED. NO BLOOD REACTION
[2020-06-25 10:12] LABS: PTH, INTACT 123 pg/mL (15-65)
--- NOTE | 2020-06-25 12:00 | NUR ---
RN NOTES PT TOLERATED WELL THE BLOOD TRANSFUSION WITH NO SIDE EFFECT
[2020-06-25 12:26] LABS: THYROID STIMULATING HORMONE 8.324 uIU/mL (0.358-3.74)
[2020-06-25] MEDS: AMIKACIN IV SCH (13:25)
[2020-06-25] MEDS: D5W IV SCH (13:25)
--- NOTE | 2020-06-25 14:00 | NUR ---
RN NOTES PT HAS NO S/S OF SOB OR DISTRESS NOTED
[2020-06-25 14:19] LABS: HEMOGLOBIN 8.4 g/dL (11.5-14.8)
--- NOTE | 2020-06-25 18:44 | NUR ---
RN CLOSING NOTES PT IS ON BED RESTING, INTUBATED AND SEDATED ON DIPRIVAN AT 35MCG/KG/HR AT THIS TIME , TOLERATING VENT SETTING WELL, O2 SAT WNL , NO SIGNS OF SOB OR ACUTE DISTRESS NOTED, BREATHING EVEN AND UNLABORED. HR IN LOW 100'S , R UPPER ARM PICC LINE , SITE CLEAN ,DRY AND INTACT NO S/S OF INFILTRATION OR INFECTION NOTED , PT IS NPO EXCEPTS MEDS. WEISS DRAINING TO GRAVITY,YELLOW COLOR. SAFETY MEASUREMENTS ARE IMPLEMENTED PER HOSPITAL POLICY .SIDE RAILS UPx2, BED IS LOCKED AND IN LOWEST POSITION. WILL ENDORSE TO PM NURSE FOR NORIS
--- NOTE | 2020-06-25 20:00 | NUR ---
Received patient sedated on Diprivan gtt at 35 mcg.Orally intubated to mechanical vent on AC mode.Vent settings well tolerated.Respiration even and unlabored.Tele SR.Normotensive.NPO status with gt clamped.FC to gravity.Turned and repositioned.Continue monitoring
--- NOTE | 2020-06-25 20:06 | NUR ---
RT NOTES PT RECEIVED ORALLY INTUBATED WITH 7.5 ETT SECURED AT 23CM AT THE LIP LINE ON [facility] VENT ON ORDERED AC MODE SETTINGS. NO SIGNS OF RESP DISTRESS/SOB NOTED AT THIS TIME. AIRWAY PATENT. SLITTER PROCESSED FILM DONE. PT SUCTIONED. ALARMS SET AND AUDIBLE. AMBUBAG AT BEDSIDE. VENT PLUGGED INTO RED OUTLET. WILL CONT TO MONITOR. Addendum: 06/25/20 at 2351 by BETSY MENA RT Amended: Links added.
[2020-06-25] MEDS: IV NS 0.9% 250 ML IV PRN (22:28)
--- NOTE | 2020-06-25 22:40 | NUR ---
Patient with order for EGD in AM.Telephone Consent obtained form Daughter Keysha.
[2020-06-26] VITALS (67 sets, daily range): BP systolic 119–177; BP diastolic 53–93
--- NOTE | 2020-06-26 | NUR ---
Patient remain NPO.AM care and wound care done.Turned and repositioned offloading pressure points.
[2020-06-26] MEDS: PROPOFOL 10MG/ML 50ML 50 ML IV PRN ×8 (01:59→22:10)
[2020-06-26 05:17] LABS: BASOPHILS # (AUTO) 0.1 /CMM (0.0-0.2); BASOPHILS % (AUTO) 0.3 % (0.0-2.0); HEMATOCRIT 25 % (33-45); HEMOGLOBIN 8.3 g/dL (11.5-14.8); LYMPHOCYTES # (AUTO) 0.2 /CMM (0.8-4.8); MEAN CORPUSCULAR HGB CONC 34 g/dl (31.0-36.0); MEAN CORPUSCULAR VOLUME 90 fL (82-100); MONOCYTES # (AUTO) 0.6 /CMM (0.1-1.30); MONOCYTES % (AUTO) 2.5 % (2.0-12.0); NEUTROPHILS # (AUTO) 23.2 /CMM (1.8-8.9); NEUTROPHILS % (AUTO) 96.2 % (43.0-81.0); PLATELET COUNT (AUTO) 307 /CMM (150-450); RED BLOOD CELL COUNT(AUTO) 2.73 MIL/uL (4.0-5.2); WHITE BLOOD COUNT (AUTO) 24.2 K/uL (4.3-11.0)
[2020-06-26 05:32] LABS: CALCIUM, SERUM 7.7 mg/dL (8.5-10.1); CARBON DIOXIDE 23 mmol/L (21-32); CHLORIDE 102 mmol/L (98-107); GLUCOSE 115 mg/dL (74-106); MAGNESIUM 2.4 mg/dL (1.8-2.4); PHOSPHORUS 4.6 mg/dL (2.5-4.9); POTASSIUM 2.9 mmol/L (3.5-5.1); SODIUM SERUM 140 mmol/L (136-145)
[2020-06-26 05:42] LABS: UREA NITROGEN, BLOOD 113 mg/dL (7-18)
--- NOTE | 2020-06-26 06:30 | NUR ---
Patient resting.VSS.Oral care done.Secretions suctioned PRN.Tolerating vent settings.Diprivan gtt infusing at same rate.No acute changes noted throughout the shift.Turned and repositioned. Pre-op check list for EGD initiated.NPO maintained.Will endorse to day shift for NORIS.
[2020-06-26] MEDS: PIPERACILLIN /TAZOBACTAM 3.375 G in IV D5W 100 ML IV SCH (07:45)
--- NOTE | 2020-06-26 07:52 | NUR ---
RN NOTES Received patient sedated on Diprivan gtt at 35 mcg. Orally intubated 7.5, to mechanical vent on AC-14 mode, peep-0. Vent settings well tolerated. Respiration even and unlabored no acute respiratory distress, patient has. Tele SR - 81. Patient NPO status with gt clamped. keep HOB elevated foe aspiration precaution, FC draining light yellow output. Started Zosyn 25 mg/ml extended dose, patient has edema BLE, and upper extremities with discoloration. Assist turned and repositioned q 2 . Will Continue monitoring.
[2020-06-26] MEDS: PANTOPRAZOLE 40 MG VIAL IV SCH ×2 (08:17→21:13)
[2020-06-26] MEDS: HYDROCORTISONE SOD SUCCINATE 100 MG/2 ML VIAL IV SCH ×2 (08:18→21:13)
[2020-06-26] MEDS: DAKINS QUARTER STRENGTH (0.125%) 480 ML BOTTLE TOP SCH (08:18)
[2020-06-26] MEDS: MUPIROCIN OINT 2% 22 GM TUBE NS SCH ×2 (08:18→21:15)
[2020-06-26] MEDS ORDERED: BISACODYL SUPP (10 MG) 10 MG/SUPP.RECT SUPP.RECT RC PRN (09:30)
[2020-06-26] MEDS ORDERED: NA PHOS,M-B/NA PHOS,DI-BA 1 EA ENEMA RC PRN (09:30)
--- NOTE | 2020-06-26 09:44 | NUR ---
RN NOTES PATIENT NPO SCHEDULED EGD AFTERNOON PER GI, Dr BAUGH. BILATERAL SOFT RESTRAIN ON WRIST RECHECKED FOR CIRCULATION. KEEP HOB ELEVATED.
[2020-06-26] MEDS: VANCOMYCIN HCL 0.75 GM in IV D5W 250 ML IV SCH (09:57)
[2020-06-26] MEDS: POTASSIUM CL. PREMIX PERIPHER. 50 ML IV SCH ×5 (11:17→15:38)
[2020-06-26] MEDS: LEVOTHYROXINE INJ 100 MCG VIAL IV SCH (11:23)
--- NOTE | 2020-06-26 11:56 | NUR ---
rn notes patient getting EGD at bedside via Dr Stringer. v/s stable, will monitoring.
--- NOTE | 2020-06-26 12:08 | NUR ---
rn notes Finished EDG at this time via GI Dr Stringer, finding is gastritis, no biopsy taken.
--- NOTE | 2020-06-26 12:20 | NUR ---
rn notes per GI Dr Stringer resume same diet , and resume same medications.
[2020-06-26] MEDS: AMIKACIN IV SCH (14:42)
[2020-06-26] MEDS: D5W IV SCH (14:42)
[2020-06-26 15:07] LABS: *SPE A/G RATIO 0.7 (0.7-1.7); *SPE ALPHA-1-GLOBULIN 0.7 g/dL (0.0-0.4); *SPE ALPHA-2-GLOBULIN 0.9 g/dL (0.4-1.0); *SPE BETA GLOBULIN 0.9 g/dL (0.7-1.3); *SPE M-SPIKE Not Observed g/dL (Not Observed); *SPEGAMMA GLOBULIN 0.5 g/dL (0.4-1.8)
--- NOTE | 2020-06-26 16:25 | NUR ---
rn notes administered Ativan 1 mg/ml for mild agitation per md order q1 hr prn, v/s taken bp 173/73, p-84. will monitoring.
[2020-06-26] MEDS: LORAZEPAM INJ 2 MG/ML VIAL IV PRN (16:28)
[2020-06-26] MEDS: TWOCAL HN 1,000 ML LIQUID GT PRN (17:54)
--- NOTE | 2020-06-26 17:55 | NUR ---
rn notes started tube feeding two yoana HN at 25 ml/hr, no residual.
--- NOTE | 2020-06-26 18:36 | NUR ---
RN NOTES PATIENT SEDATION VACATION DONE, INFUSING DITROPAN 50MCG AT THIS TIME ON RIGHT GROIN AREA INTACT, GTF TWO COLBY HN AT 25 ML/HR INTACT, KEEP HOB ELEVATED FOR ASPIRATION PRECAUTION, WEISS CATHETER DRAINING LIGHT YELLOW OUTPUT WITH SEDIMENTS. ASSIST TURN AND REPOSTION Q 2 HR. PATIENT HAS NO ACUTE RESPIRATORY DISTRESS. ENDORSED ONCOMING NURSE FOLLOW PLAN OF CARE.
--- NOTE | 2020-06-26 20:00 | NUR ---
Received patient orally intubated to mechanical vent on full vent support.Vent settings well tolerated. No acute distress noted.Sedated on Diprivan gtt at 50 mcg/kg/min infusing via DIMA ML and site intact. VSS.SR.Normotensive.GT feeding in progress no residual noted.FC to gravity.Turned and repositioned. Continue monitoring.
[2020-06-26] MEDS: MEROPENEM 500 MG in IV NS 0.9% 50 ML IV SCH (21:12)
[2020-06-27] VITALS (37 sets, daily range): BP systolic 118–169; BP diastolic 47–76
[2020-06-27] MEDS: PROPOFOL 10MG/ML 50ML 50 ML IV PRN ×9 (01:07→23:11)
--- NOTE | 2020-06-27 02:00 | NUR ---
Patient remains sedated.VSS.SR.BM X1 small pasty brown.Bed bath rendered.Complete linens changed. Wound care done per protocol.Turned and repositioned.No acute distress noted.
[2020-06-27] MEDS: IV NS 0.9% 250 ML IV PRN (04:31)
[2020-06-27 04:34] LABS: HEMATOCRIT 24 % (33-45); HEMOGLOBIN 7.8 g/dL (11.5-14.8); LYMPHOCYTES # (AUTO) 0.2 /CMM (0.8-4.8); MEAN CORPUSCULAR HGB CONC 32 g/dl (31.0-36.0); MEAN CORPUSCULAR VOLUME 92 fL (82-100); MONOCYTES # (AUTO) 0.7 /CMM (0.1-1.30); MONOCYTES % (AUTO) 3.8 % (2.0-12.0); NEUTROPHILS % (AUTO) 95.2 % (43.0-81.0); PLATELET COUNT (AUTO) 287 /CMM (150-450); RED BLOOD CELL COUNT(AUTO) 2.64 MIL/uL (4.0-5.2); WHITE BLOOD COUNT (AUTO) 18.9 K/uL (4.3-11.0)
[2020-06-27 04:44] LABS: CALCIUM, SERUM 7.4 mg/dL (8.5-10.1); CARBON DIOXIDE 22 mmol/L (21-32); CHLORIDE 106 mmol/L (98-107); CREATININE 1.9 mg/dL (0.6-1.3); GLUCOSE 178 mg/dL (74-106); MAGNESIUM 2.3 mg/dL (1.8-2.4); PHOSPHORUS 3.8 mg/dL (2.5-4.9); POTASSIUM 2.9 mmol/L (3.5-5.1); SODIUM SERUM 142 mmol/L (136-145)
[2020-06-27 04:46] LABS: UREA NITROGEN, BLOOD 97 mg/dL (7-18)
--- NOTE | 2020-06-27 06:50 | NUR ---
No significant change noted on patient status all throughout the shift.All needs met. VSS.SR.Diprivan gtt infusing at same rate.Tolerating vent settings and gt feeding. HOB elevated.Turned and repositioned.No acute distress noted.
--- NOTE | 2020-06-27 07:15 | NUR ---
LEATHER CRAFTSMAN NOTES RECEIVED PATIENT SEDATED , RESPONSIVE TO PAIN STIMULI , NOT IN ACUTE DISTRESS , RESPIRATIONS EVEN AND UNLABORED WITH SPO2 OF 100% , ETT 02/[address] , SR 78 ON BEDSIDE MONITOR , GT PATENT AND INTACT WITH TWOCAL @ 25ML/HR TOLERATING WELL WITH NO RESIDUALS NOTED , FC DRAINING VIA GRAVITY , DIMA MIDLINE WITH DIPRIVAN @ 50MCG/KG/MIN , NS @ TKO INFUSING WELL , LEFT EJ # 20 PATENT AND INTACT SL , ALL NEEDS ATTENDED , WILL CONTINUE TO MONITOR .
[2020-06-27] MEDS: HYDROCORTISONE SOD SUCCINATE 100 MG/2 ML VIAL IV SCH ×2 (08:20→20:52)
[2020-06-27] MEDS: LEVOTHYROXINE INJ 100 MCG VIAL IV SCH (08:20)
[2020-06-27] MEDS: PANTOPRAZOLE 40 MG VIAL IV SCH (08:20)
[2020-06-27] MEDS: DAKINS QUARTER STRENGTH (0.125%) 480 ML BOTTLE TOP SCH (08:21)
[2020-06-27] MEDS: MEROPENEM 500 MG in IV NS 0.9% 50 ML IV SCH ×2 (08:21→20:49)
[2020-06-27] MEDS: MUPIROCIN OINT 2% 22 GM TUBE NS SCH ×2 (08:22→20:53)
--- NOTE | 2020-06-27 08:42 | NUR ---
STOCK HANGER NOTES DR HIGUERA AT BEDSIDE , SEEN AND EVALUATED THE PT , PT OFF SEDATION , TRACKS , AWAKE , ABLE TO FOLLOW SIMPLE COMMANDS , NOTED WITH DISTRESS ON AC MODE SETTINGS ORDERED , HR 120'S ST , BP OF 169 / 74 , RR 30-40CPM , MD AWARE , SIMV HELD .
[2020-06-27] MEDS: POTASSIUM CHLORIDE 20 MEQ POWDER PACKET GT SCH ×3 (09:25→12:19)
[2020-06-27] MEDS ORDERED: SILVER NITRATE APPLICATOR 1 EA BOX TP STA (10:20)
[2020-06-27] MEDS ORDERED: LIDOCAINE 1%-EPI 1:100,000 20 ML VIAL TP STA (10:20)
--- NOTE | 2020-06-27 12:59 | NUR ---
SUPERVISOR CAPACITOR PROCESSING NOTES PT STABLE S/P Sharp excisional debridement performed down to and including bone of sacrum 5.1x5x1.2cm with removal of devitalized/necrotic tissue BY ERNESTO MADISON TOLERATED WELL WITH NO ACTIVE BLEEDING NOTED , WOUND SPECIMENT COLLECTED LABELED AND SENT TO LAB , LEXIS JUAREZ KLYSTROM TUBE TESTER AT BEDSIDE , DISCISSED LABS , FAILED SIMV WEANING DUE TO DISTRESS , HIGH BP AND TACHYCARDIA , NO ACTIVE GI BLEED NOTED , BLEEDING NOTED UPON SUCTIONING SMALL IN AMOUNT , STOOL BROWN FORMED X1 SEEN BY KLYSTROM TUBE TESTER WELL , SHOWED BILATERAL INNER THIGH BRUISING WITH THICKENING , KLYSTROM TUBE TESTER AWARE . Addendum: 06/27/20 at 1309 by SINDHU MOORE RN NOTIFIED JESSICA JUAREZ REGARDING RIGHT UPPER ARM NOTED WITH SWELLING , KLYSTROM TUBE TESTER AWARE
[2020-06-27] MEDS: SOD FERRIC GLUC 125 MG in IV NS 0.9% 100 ML IV SCH (13:52)
--- NOTE | 2020-06-27 14:16 | NUR ---
MUSIC PROFESSIONALS NOTES SEEN AND EVALUATED BY DR BAUGH , DISCUSSED LABS , NO ACTIVE GI BLEED NOTED , STOOL FORMED BROWN , TOLERATING GT FEEDING , MD AWARE
[2020-06-27] MEDS: TWOCAL HN 1,000 ML LIQUID GT PRN (16:03)
--- NOTE | 2020-06-27 19:30 | NUR ---
RN NOTES RECEIVED PATIENT ORALLY INTUBATED WITH ETT #7 POSITION @ 23 VENT SETTING AC [id number] FIO2 40% NO PEEP JOANA WELL SATURATION 96% SR ON TELE MONITOR. NO RESPIRATORY DISTRESS. PATIENT IS SEDATED WITH DIPRIVAN, ABLE TO OPEN EYES. AFEBRILE. IV SITE ON DIMA ML AND LEJ ARE INTACT AND PATENT WITH DIPRIVAN @ 50 MCG/KG/MIN AND TKO INTACT CLEAN AND DRY. PATIENT HAS GTF TWO COLBY HM @ 25 ML/HR WITH HOB ELEVATED TOLERATED WELL. NO RESIDUAL NOTED. TURN AND REPOSITION FOR SKIN CARE PATIENT TOLERANCE.
[2020-06-27] MEDS: PANTOPRAZOLE 40 MG/PACK PACK GT SCH (20:52)
--- NOTE | 2020-06-27 21:49 | NUR ---
RT pt received on mechanical vent with current settings. intubated with ett size 7.5, 23 @lip. vent plugged in to red outlet. alarms on and audible. ett patent and anchor fast changed to secure ett. moderate, thick bloody secretions suctioned via ett. ambu bag at [facility]. no sob, no resp distress.
[2020-06-28] VITALS (55 sets, daily range): BP systolic 102–158; BP diastolic 35–109
[2020-06-28] MEDS: PROPOFOL 10MG/ML 50ML 50 ML IV PRN ×4 (02:08→11:11)
--- NOTE | 2020-06-28 03:00 | NUR ---
RN NOTES BEDBATH DONE AND TOLERATED WELL NO RESPIRATORY DISTRESS. WOUND CARE PROVIDED. WITH LARGE SOFT DARK COLOR URINE. CONT. TO TURN AND REPOSITION PT COMFORTABLE.
[2020-06-28 04:33] LABS: BASOPHILS % (AUTO) 0.1 % (0.0-2.0); EOSINOPHILS % (AUTO) 0.2 % (0.0-6.0); HEMATOCRIT 21 % (33-45); LYMPHOCYTES # (AUTO) 0.2 /CMM (0.8-4.8); LYMPHOCYTES % (AUTO) 1.6 % (20.0-44.0); MEAN CORPUSCULAR HGB CONC 33 g/dl (31.0-36.0); MEAN CORPUSCULAR VOLUME 92 fL (82-100); MONOCYTES # (AUTO) 0.9 /CMM (0.1-1.30); NEUTROPHILS # (AUTO) 14.3 /CMM (1.8-8.9); NEUTROPHILS % (AUTO) 92.1 % (43.0-81.0); PLATELET COUNT (AUTO) 277 /CMM (150-450); RED BLOOD CELL COUNT(AUTO) 2.32 MIL/uL (4.0-5.2); WHITE BLOOD COUNT (AUTO) 15.5 K/uL (4.3-11.0)
[2020-06-28 04:41] LABS: CALCIUM, SERUM 6.9 mg/dL (8.5-10.1); CARBON DIOXIDE 24 mmol/L (21-32); CHLORIDE 111 mmol/L (98-107); CREATININE 1.8 mg/dL (0.6-1.3); GLUCOSE 153 mg/dL (74-106); MAGNESIUM 2.3 mg/dL (1.8-2.4); PHOSPHORUS 3.1 mg/dL (2.5-4.9); POTASSIUM 3.7 mmol/L (3.5-5.1); SODIUM SERUM 145 mmol/L (136-145)
[2020-06-28 04:42] LABS: UREA NITROGEN, BLOOD 88 mg/dL (7-18)
--- NOTE | 2020-06-28 07:22 | NUR ---
RN NOTES PATIENT REMAINED SEDATED. NO FACIAL COMPLAIN OF PAIN. AFEBRILE. VSS, NSR ON TELE MONITOR. SATURATION >95%. NO CHANGE FROM VENT SETTING PATIENT WILL HAVE WEANING TRIAL TODAY. ENDORSED CONTINUITY OF CARE TO AM NURSE.
--- NOTE | 2020-06-28 08:00 | NUR ---
RN NOTES RECEIVED PATIENT SEDATED, NO ACUTE RESPIRATORE DISTRESS, RESPIRATIONS EVEN AND UNLABORED WITH SPO2 OF 100% , ETT 02/[address] , SR 70 ON BEDSIDE MONITOR , GT PATENT AND INTACT WITH TWOCAL @ 25ML/HR TOLERATING WELL WITH NO RESIDUALS NOTED , FC DRAINING VIA GRAVITY , DIMA MIDLINE WITH DIPRIVAN @ 50MCG/KG/MIN . PATIENT HAS EDEMA BLE, AND UPPER ARMS, KEEP ELEVATED USING PILLOWS, SACRAL WOUND DRESSING INTACT, ASSIST TURN AND REPOSTION Q 2 HR. ALL NEEDS ATTENDED. WILL CONTINUE TO MONITOR .
[2020-06-28] MEDS: LEVOTHYROXINE INJ 100 MCG VIAL IV SCH (08:57)
[2020-06-28] MEDS: HYDROCORTISONE SOD SUCCINATE 100 MG/2 ML VIAL IV SCH ×2 (08:57→21:32)
[2020-06-28] MEDS: PANTOPRAZOLE 40 MG/PACK PACK GT SCH ×2 (08:59→21:32)
[2020-06-28] MEDS: MUPIROCIN OINT 2% 22 GM TUBE NS SCH ×2 (09:00→21:33)
[2020-06-28] MEDS: DAKINS QUARTER STRENGTH (0.125%) 480 ML BOTTLE TOP SCH (09:00)
[2020-06-28] MEDS: MEROPENEM 500 MG in IV NS 0.9% 50 ML IV SCH ×2 (09:13→21:32)
[2020-06-28] MEDS: LORAZEPAM INJ 2 MG/ML VIAL IV PRN (09:13)
--- NOTE | 2020-06-28 09:13 | NUR ---
RN NOTES ADMINISTERED ATIVAN 1 MG /ML IV PUSH FOR MILD AGITATION, BP 145/52, P-75, ALSO INFUSING MERREM 100 ML/HR /HR ON RIGHT PICC LINE UA INTACT. ADMINISTERED SCHEDULED MEDICATION. KEEP HOB ELEVATED FOR ASPIRATION PRECAUTION.
--- NOTE | 2020-06-28 09:30 | NUR ---
RN NOTES MEDICATION WERE GIVEN FOR ANXIETY EFFECTIVE, PATIENT SEDATED.
--- NOTE | 2020-06-28 13:48 | NUR ---
RN NOTES STARTED ONE UNIT OF BLOOD TRANSFUSION, V/S STABLE, CONTINUED MONITORING.
[2020-06-28] MEDS: PROPOFOL 100 ML IV PRN ×2 (13:52→18:02)
--- NOTE | 2020-06-28 14:12 | NUR ---
RN NOTES PATIENT HAS NO SIGN AND SYMPTOMS OF BLOOD TRANSFUSION REACTION, V/S TAKEN BP 98.3, P-65, R-21, BP 106/38, INCREASED INFUSION AT 75 ML/HR ON RIGHT PICC LINE UA INTACT, WILL MONITORING.
--- NOTE | 2020-06-28 14:32 | NUR ---
RN NOTES PATIENT V/S STABLE BP 114/41, P-63, T-98,3, R-18, INCREASED BLOOD INFUSION ON 125ML/HR. WILL MONITORING.
[2020-06-28] MEDS: SOD FERRIC GLUC 125 MG in IV NS 0.9% 100 ML IV SCH (16:27)
[2020-06-28] MEDS: TWOCAL HN 1,000 ML LIQUID GT PRN (16:37)
--- NOTE | 2020-06-28 17:02 | NUR ---
rn notes blood transfusion end at this time, bp-135/67, p-75, r-21, t-97.6, no sign and symptoms at this time. patient sedated. needs attended and anticipated.
--- NOTE | 2020-06-28 18:30 | NUR ---
rn notes PATIENT SEDATED INFUSING DITROPAN 50 MCG/KG AT THIS TIME, PM CARE DONE,SCHEDULED MEDICATION ADMINISTERED VIS GT, GTF INTACT 25CC/HR, KEEP HOB ELEVATED , V/S STABLE, NO ACUTE RESPIRATORY DISTRESS, ASSIST TURN AND REPOSTION Q2 HR, RECHECKED RESTRAIN FOR CIRCULATION Q 2 HR, WEISS DRAINING LIGHT YELLOW OUTPUT. ENDORSED ONCOMING NURSE FOLLOW PLAN OF CARE.
--- NOTE | 2020-06-28 19:45 | NUR ---
RN NOTES PATIENT is ORALLY INTUBATED WITH ETT SIZE #7 POSITION @ 23CM AT LIPLINE VENT SETTING AC 14 TV100 FIO2 40% NO PEEP JOANA. WELL, NO SOB OR RESP. DISTRESS. SATURATION 96% SR ON TELE MONITOR. PATIENT IS SEDATED WITH DIPRIVAN, ABLE TO OPEN EYES. AFEBRILE. IV SITE ON DIMA ML AND LEJ INTACT AND PATENT RUNNING W/ DIPRIVAN @ 50 MCG/KG/MIN TITRATES PROTOCOL ORDERED, IV SITE INTACT CLEAN AND DRY. PATIENT HAS GTF TWO COLBY HN @ 25 ML/HR WITH HOB ELEVATED TOLERATED WELL. NO RESIDUAL NOTED. , OFFLOADED EXT WITH PILLOWS. TURNED AND REPOSITIONED WITH GENTLE CARE, PATIENT SKIN IS SO FRAGILE WITH MULTIPLE DISCOLORATION. KEPT PT CLEAN AND DRY WILL ONT. POC.
[2020-06-28] MEDS ORDERED: MUPIROCIN OINT 2% 22 GM TUBE NS SCH (21:00)
[2020-06-29] VITALS (34 sets, daily range): BP systolic 124–182; BP diastolic 43–112
[2020-06-29] MEDS: PROPOFOL 100 ML IV PRN ×2 (00:01→06:57)
--- NOTE | 2020-06-29 01:00 | NUR ---
RN NOTES BEDBATH DONE AND TOLERATED WELL. REMAINED NSR AND SEDATED. CONT. TO MONITOR.
--- NOTE | 2020-06-29 07:00 | NUR ---
RN NOTES NO SIGNIFICANT CHANGES TROUGHOUT THE SHIFT. ETT AND VENT SETTING THE SAME TOLERATED WELL. NO SOB, SATURATION >95%. AFEBRILE. VSS. AFIB WITH V PACING ON TELE MONITOR. INCONTINENT CARE RENDERED. BED BATH TOLERATED WELL. PATIENT REMAINED CALM AND COOPERATIVE WITHOUT SEDATION. CONTINUE TO TURN AND REPOSITION Q2H AND PRN PT TOLERANCE AND COMFORT. CONTINUE WITH POC
[2020-06-29] MEDS ORDERED: DC PROPOFOL WHEN EXTUBATED XX PRN (08:00)
[2020-06-29 08:15] LABS: BASOPHILS % (AUTO) 0.1 % (0.0-2.0); EOSINOPHILS % (AUTO) 1.3 % (0.0-6.0); HEMATOCRIT 27 % (33-45); HEMOGLOBIN 8.8 g/dL (11.5-14.8); LYMPHOCYTES # (AUTO) 0.3 /CMM (0.8-4.8); LYMPHOCYTES % (AUTO) 2.2 % (20.0-44.0); MEAN CORPUSCULAR HGB CONC 32 g/dl (31.0-36.0); MEAN CORPUSCULAR VOLUME 93 fL (82-100); MONOCYTES # (AUTO) 1.2 /CMM (0.1-1.30); MONOCYTES % (AUTO) 7.3 % (2.0-12.0); NEUTROPHILS # (AUTO) 14.1 /CMM (1.8-8.9); NEUTROPHILS % (AUTO) 89.1 % (43.0-81.0); PLATELET COUNT (AUTO) 282 /CMM (150-450); RED BLOOD CELL COUNT(AUTO) 2.92 MIL/uL (4.0-5.2); WHITE BLOOD COUNT (AUTO) 15.8 K/uL (4.3-11.0)
--- NOTE | 2020-06-29 08:18 | NUR ---
received pt from [facility], sedated on Diprivan at 50mcg, SR, intubated, sat well, edema pitting all extremities, GT to feeding tolerates well, f/c good output, v/s stable, no pain, pt turned and repositioned.
[2020-06-29] MEDS: DAKINS QUARTER STRENGTH (0.125%) 480 ML BOTTLE TOP SCH (08:24)
[2020-06-29] MEDS: MUPIROCIN OINT 2% 22 GM TUBE NS SCH ×2 (08:24→20:26)
[2020-06-29] MEDS: MEROPENEM 500 MG in IV NS 0.9% 50 ML IV SCH ×2 (08:28→20:13)
[2020-06-29] MEDS: LEVOTHYROXINE SODIUM 50 MCG TABLET GT SCH (08:29)
[2020-06-29] MEDS: PANTOPRAZOLE 40 MG/PACK PACK GT SCH ×2 (08:29→20:12)
[2020-06-29] MEDS: HYDROCORTISONE SOD SUCCINATE 100 MG/2 ML VIAL IV SCH ×2 (08:29→20:12)
--- NOTE | 2020-06-29 08:49 | NUR ---
vent changes below for weaning trial per Dr. Davis: SIMV 4 VT 400 PS 15 FIO2 40% PEEP +5 VITAL SIGNS: SPO2 100%, RR 18 - 21BPM, HR 88 bpm. no increase work of breathing noted. Addendum: 06/29/20 at 0852 by RILEY LOPEZ RT Amended: Links added.
[2020-06-29 08:56] LABS: CALCIUM, SERUM 7.2 mg/dL (8.5-10.1); CARBON DIOXIDE 24 mmol/L (21-32); CHLORIDE 113 mmol/L (98-107); CREATININE 1.7 mg/dL (0.6-1.3); GLUCOSE 127 mg/dL (74-106); POTASSIUM 3.4 mmol/L (3.5-5.1); SODIUM SERUM 147 mmol/L (136-145)
[2020-06-29 09:04] LABS: UREA NITROGEN, BLOOD 84 mg/dL (7-18)
[2020-06-29] MEDS ORDERED: POTASSIUM CHLORIDE 20 MEQ POWDER PACKET GT ONE (09:30)
[2020-06-29 09:58] LABS: ABG BASE EXCESS -3.7 mmol/L; ABG OXYGEN SATURATION 98.5 % (92.0-98.5); ABG PCO2 27.5 mmHg (35.0-45.0); ABG PH 7.459 (7.350-7.450); ABG PO2 113.2 mmHg (75.0-100.0); AaDO2 140.4 mmHg; COHb 0.7 % (0.5-1.5); MetHb 0.1 % (0.0-1.5); O2Hb 97.7 % (94.0-97.0); PEEP,BG 5 cm H2O; SITE, ABG Right Radial; VENT MODE, BG SIMV 4 / PS 15
--- NOTE | 2020-06-29 10:40 | NUR ---
pt is successfully extubated, on 3L now, sat well.
--- NOTE | 2020-06-29 10:40 | NUR ---
@ 1040 pt. is awake, follow commands able to lift her head extubated per dr. davila. placed into nasal cannula @ 2 lpm o2 flow. no increase work of breathing noted. Addendum: 06/29/20 at 1051 by RILEY LOPEZ RT Amended: Links added.
--- NOTE | 2020-06-29 12:30 | NUR ---
pt started desaturating, now on non rebreather, non compliant.
--- NOTE | 2020-06-29 13:14 | NUR ---
placed into non rebreathing mask due to 84% spo2. RN NOTIFIED Addendum: 06/29/20 at 1315 by RILEY LOPEZ RT Amended: Links added.
[2020-06-29] MEDS: SOD FERRIC GLUC 125 MG in IV NS 0.9% 100 ML IV SCH (13:53)
--- NOTE | 2020-06-29 16:22 | NUR ---
pt is resting in the bed, alert, non compliant, pulling lines and tubes, back on restraints, SR, on non rebreather, sat well, good urine output, v/s stable, no pain, pt cleaned, changed and repositioned q2hrs.
--- NOTE | 2020-06-29 18:15 | NUR ---
SBP 165-170, Dr Montes notified.
--- NOTE | 2020-06-29 19:40 | NUR ---
RN NOTES RECEIVED PATIENT AWAKE ALERT ORIENTED EASILY FORGET S/P EXTUBATION @ 1040AM WITH NRB @ 15LPM SATURATION 100%. AFEBRILE. HYPERTENSION PRESENT SBP 170-180'S RECHECKED 3X. PATIENT IS QUITE RESTLESS. TRYING TO PULL MASK OUT OF HER FACE. EDUCATE AND EXPLAINED THE RISK AND BENEFITS OF KEEPING NRB ON. HOME WORKER RESTRAINT KEPT IN PLACED, CIRCULATION CHECKED. IV SITE INTACT AND PATENT. GTF TOLERATED WELL W.// HOB KEPT ELEVATED. TURN AND REPOSITION FOR PATIENT COMFORTABLE AND FOR SKIN CHECKED. KEPTP T CLEAN AND DRY. WILL CLOSELY MONITOR.
[2020-06-29] MEDS: hydrALAZINE HCL 25 MG TABLET GT PRN (20:13)
[2020-06-29] MEDS: IV NS 0.9% 250 ML IV PRN (20:29)
[2020-06-30] VITALS (44 sets, daily range): BP systolic 140–171; BP diastolic 53–127
--- NOTE | 2020-06-30 02:30 | NUR ---
RN NOTES CHANGE NRB MASK TO O2 5LPM VIA NC AND TOLERATED WELL SATURATION REMAINED 99%. WILL CLOSELY MONITOR.
[2020-06-30] MEDS: LORAZEPAM INJ 2 MG/ML VIAL IV PRN (02:45)
--- NOTE | 2020-06-30 03:00 | NUR ---
RN NOTES BEDBATH DONE AND TOLERATED WELL. WOUND TX. APPLIED ORDERED. WITH BMX 1
[2020-06-30 04:27] LABS: BASOPHILS % (AUTO) 0.1 % (0.0-2.0); HEMATOCRIT 33 % (33-45); HEMOGLOBIN 10.5 g/dL (11.5-14.8); LYMPHOCYTES # (AUTO) 0.3 /CMM (0.8-4.8); LYMPHOCYTES % (AUTO) 1.2 % (20.0-44.0); MEAN CORPUSCULAR HGB CONC 32 g/dl (31.0-36.0); MEAN CORPUSCULAR VOLUME 93 fL (82-100); MONOCYTES # (AUTO) 0.9 /CMM (0.1-1.30); NEUTROPHILS # (AUTO) 21.5 /CMM (1.8-8.9); NEUTROPHILS % (AUTO) 94.7 % (43.0-81.0); PLATELET COUNT (AUTO) 328 /CMM (150-450); RED BLOOD CELL COUNT(AUTO) 3.52 MIL/uL (4.0-5.2); WHITE BLOOD COUNT (AUTO) 22.7 K/uL (4.3-11.0)
[2020-06-30 04:39] LABS: CALCIUM, SERUM 7.9 mg/dL (8.5-10.1); CARBON DIOXIDE 24 mmol/L (21-32); CHLORIDE 116 mmol/L (98-107); CREATININE 1.5 mg/dL (0.6-1.3); GLUCOSE 136 mg/dL (74-106); POTASSIUM 3.5 mmol/L (3.5-5.1); SODIUM SERUM 152 mmol/L (136-145); UREA NITROGEN, BLOOD 74 mg/dL (7-18)
[2020-06-30] MEDS: TWOCAL HN 1,000 ML LIQUID GT PRN (05:31)
--- NOTE | 2020-06-30 06:35 | NUR ---
RN NOTES PATIENT TOLERATE O2 VIA NC @ 5LPM SATURATION BETWEEN 92-96%, AFEBRILE. VSS. SUCTION OROPHARYNGEAL AND NASOPHARYNGEAL WITH SMALL TO MODERATE AMT OF THICK SECRETION. HOB KEPT ELEVATED GTF IS RUNNING. ALL DUE MEDICINE TOLERATED WELL. KEPT PT CLEAN AND DRY. WILL ENDORSED CONTINUITY OF CARE TO AM NURSE.
--- NOTE | 2020-06-30 08:32 | NUR ---
received pt from retail shift supervisor, alert, follows commands, SR, on 5L 02 sat 92-93%, GT to feeding tolerates well, f/c good output, v/s stable, no pain, pt turned and repositioned.
[2020-06-30] MEDS: LEVOTHYROXINE SODIUM 50 MCG TABLET GT SCH (08:44)
[2020-06-30] MEDS: MEROPENEM 500 MG in IV NS 0.9% 50 ML IV SCH ×2 (08:44→21:05)
[2020-06-30] MEDS: PANTOPRAZOLE 40 MG/PACK PACK GT SCH ×2 (08:44→21:41)
[2020-06-30] MEDS: HYDROCORTISONE SOD SUCCINATE 100 MG/2 ML VIAL IV SCH (08:44)
[2020-06-30] MEDS: MUPIROCIN OINT 2% 22 GM TUBE NS SCH ×2 (08:44→21:41)
[2020-06-30] MEDS: DAKINS QUARTER STRENGTH (0.125%) 480 ML BOTTLE TOP SCH (08:45)
[2020-06-30] MEDS: SOD FERRIC GLUC 125 MG in IV NS 0.9% 100 ML IV SCH (14:20)
--- NOTE | 2020-06-30 16:32 | NUR ---
pt is resting in the bed, alert, follows commands, SR, sat well on 5L 02, GT to feeding tolerates well, f/c good output, v/s stable, no pain, pt cleaned, changed and repositioned.
--- NOTE | 2020-06-30 19:25 | NUR ---
ICU/MINERAL SURVEYOR RECEIVED REPORT FROM DAY NURSE. SEE FLOWSHEET FOR ASSESSMENT,THERE ARE MANY SKIN ISSUES THAT ARE ADDRESSED ON FLOWSHEET ALONG WITH INTERVENTIONS TO EACH. PT IS AWAKE TO STIMULI BUT THEN FALLS BACK TO SLEEP. PT IS ON ON 5 LITERS VIA N/C WITH SATURATION AT 89-90%. PT WAS TURN AND REPOSITION FOR COMFORT AND CARE. WILL CONTINUE TO MONITOR THIS PT.
--- NOTE | 2020-06-30 19:50 | NUR ---
ICU/MED PEDS PT APPEARS TO BE A MOUTH BREATHER, WITH SATURATION AT 88-89% AND ON N/C, IT WAS CHANGED OUT FOR A NON-REBREATHER MASK AT 6 LITERS. SATURATION CAME BACK UP TO 99%. WILL CONTINUE TO MONITOR THIS PT AND HER SATURATION.
[2020-06-30] MEDS: LINEZOLID RTU BAG 600 MG in PREMIX 1 EA IV SCH (22:02)
--- NOTE | 2020-06-30 22:45 | NUR ---
ICU/MOTOR EQUIPMENT CAPTAIN PT WAS DEEP SUCTIONED, PT SOUNDED LIKE SHE WAS CONGESTED. THERE WAS THICK BROWN SPUTUM. WILL CONTINUE TO MONITOR THIS PT. PT WAS ALSO GIVEN ORAL CARE AT THIS TIME.
--- NOTE | 2020-06-30 23:30 | NUR ---
ICU/FEATHER MAKER DURING THE ASSESSMENT IT WAS FOUND THAT THE PT 'S RIGHT ARM HAS SIGNIFICATE SWELLING WHICH WAS NOT NOTED ANYWHAERE, ALONG WITH WARM TO TOUCH. . THE CALL WAS PLACED TO THE ON-CALL MD STINSON FOR A DOPPLER TO R/O RIGHT AREM DVT. CHARGE NURSE MADE AWARE OF THIS AND ORDER WAS PLACED.
[2020-07-01] VITALS (24 sets, daily range): BP systolic 114–173; BP diastolic 51–91
[2020-07-01] MEDS: hydrALAZINE HCL 25 MG TABLET GT PRN ×2 (00:10→14:06)
--- NOTE | 2020-07-01 00:25 | NUR ---
ICU/MANAGER TRANSITION PT'S BLOOD PRESSURE IS 172/82, PT HAS PRN APRESOLINE 25MG GIVEN VIA G/TUBE. WILL CONTINUE TO MONITOR THIS PT AND HER BLOOD PRESSURE.
--- NOTE | 2020-07-01 01:45 | NUR ---
ICU/DIRECTOR RECREATION CENTER AFTER PT WAS REPOSTIONED AND DRESSING CHANGES WERE DONE, PT HAS GONE FROM SINUS RHYTHM TO AFIB. PT HAS A HISTORY WITH AFIB. WILL CONTINUE TO MONITOR THIS PT AND HER RHYTHM.
--- NOTE | 2020-07-01 02:40 | NUR ---
ICU/LATHE TURNER PT WAS GIVEN ORAL CARE AT THIS TIME, ALONG WITH AM CARE. PT TOLERATED THIS WELL. PT REMAINS ON CURRENT 6 LITERS NON REBREATHER MASK WITH SATURATION AT 100%. WILL CONTINUE TO MONITOR THIS PT AND HER SATURATION. PT WAS THEN TURNED AND REPOSITIONED FOR COMFORT AND CARE, NO ACUTE DISTRESS SEEN AT THIS TIME.
[2020-07-01] MEDS: TWOCAL HN 1,000 ML LIQUID GT PRN (03:26)
--- NOTE | 2020-07-01 03:45 | NUR ---
ICU/STOCK ORDER LISTER PT WAS TURNED AND REPOSTIONED AFTER SHE WAS DEEP SUCTIONED. PT HAS THICK BROWN SPUTUM. SATURATION IS 100% ON 6 LITERS NON REBREATHER MASK. WILL CONTINUE TO MONITOR THIS PT.
--- NOTE | 2020-07-01 04:34 | NUR ---
ICU/TEXTILE PIN WORKER PT HAD NO MORNING LABS, HOWEVER CHEST XRAY WAS DONE.
--- NOTE | 2020-07-01 07:15 | NUR ---
RAIL SIGNAL MECHANIC NOTES RECEIVED PATIENT AWAKE , ABLE TRACKS , ABLE TO FOLLOW SIMPLE COMMANDS , NOT IN ACUTE DISTRESS , RESPIRATIONS EVEN AND UNLABORED WITH SPO2 OF 100% VIA 6LPM SIMPLE MASK , AFIB 90 ON BEDSIDE MONITOR , GT PATENT AND INTACT WITH TWO COLBY @ 25ML/HR WITH NO RESIDUALS NOTED , FC DRAINING VIA GRAVITY WITH CLEAR YELLOW URINE , DIMA ML WITH NS @ TKO , ALL NEEDS ATTENDED , WILL CONTINUE TO MONITOR ,
[2020-07-01] MEDS: hydrALAZINE HCL 50 MG TABLET PO SCH ×3 (08:34→16:34)
[2020-07-01] MEDS: MEROPENEM 500 MG in IV NS 0.9% 50 ML IV SCH ×2 (08:34→20:32)
[2020-07-01] MEDS: LEVOTHYROXINE SODIUM 50 MCG TABLET GT SCH (08:34)
[2020-07-01] MEDS: PANTOPRAZOLE 40 MG/PACK PACK GT SCH ×2 (08:34→20:31)
[2020-07-01] MEDS: DAKINS QUARTER STRENGTH (0.125%) 480 ML BOTTLE TOP SCH (08:35)
[2020-07-01] MEDS: MUPIROCIN OINT 2% 22 GM TUBE NS SCH ×2 (08:35→20:55)
[2020-07-01 09:12] LABS: BASOPHILS % (AUTO) 0.1 % (0.0-2.0); EOSINOPHILS % (AUTO) 0.2 % (0.0-6.0); HEMATOCRIT 31 % (33-45); HEMOGLOBIN 9.9 g/dL (11.5-14.8); LYMPHOCYTES # (AUTO) 0.4 /CMM (0.8-4.8); LYMPHOCYTES % (AUTO) 1.8 % (20.0-44.0); MEAN CORPUSCULAR HGB CONC 32 g/dl (31.0-36.0); MEAN CORPUSCULAR VOLUME 94 fL (82-100); MONOCYTES # (AUTO) 0.9 /CMM (0.1-1.30); MONOCYTES % (AUTO) 4.3 % (2.0-12.0); NEUTROPHILS # (AUTO) 18.5 /CMM (1.8-8.9); NEUTROPHILS % (AUTO) 93.6 % (43.0-81.0); PLATELET COUNT (AUTO) 311 /CMM (150-450); RED BLOOD CELL COUNT(AUTO) 3.27 MIL/uL (4.0-5.2); WHITE BLOOD COUNT (AUTO) 19.7 K/uL (4.3-11.0)
[2020-07-01] MEDS: NITROGLYCERIN 30 GM TUBE TP SCH ×2 (09:29→20:33)
[2020-07-01] MEDS: LINEZOLID RTU BAG 600 MG in PREMIX 1 EA IV SCH ×2 (09:29→21:04)
[2020-07-01 09:39] LABS: CALCIUM, SERUM 7.9 mg/dL (8.5-10.1); CARBON DIOXIDE 27 mmol/L (21-32); CHLORIDE 118 mmol/L (98-107); CREATININE 1.4 mg/dL (0.6-1.3); GLUCOSE 113 mg/dL (74-106); POTASSIUM 3.1 mmol/L (3.5-5.1); SODIUM SERUM 154 mmol/L (136-145); UREA NITROGEN, BLOOD 69 mg/dL (7-18)
[2020-07-01 10:16] LABS: LYMPHOCYTES % (MANUAL) 1 % (16-48); MONOCYTES % (MANUAL) 4 % (0-11.0); MYELOCYTES % 2 % (0-0); NEUTROPHILS % (MANUAL) 93 (42-76)
[2020-07-01] MEDS: POTASSIUM CL. PREMIX PERIPHER. 50 ML IV SCH ×4 (10:58→14:06)
[2020-07-01] MEDS ORDERED: IV D5W 1,000 ML IV ONE (11:00)
--- NOTE | 2020-07-01 13:35 | NUR ---
ASPHALT RAKER NOTES US TECH AT BEDSIDE FOR RIGHT UPPER ARM VENOUS DOPPLER TO R/O DVT
--- NOTE | 2020-07-01 13:44 | NUR ---
INTERNAL COMBUSTION ENGINE SUBASSEMBLER NOTES CALLED LAB SPOKE WITH [facility] , FOLLOWED UP PATHOLOGY REPORT TO EMR , PER [facility] PATHOLOGY IS CLOSE TODAY THEY ARE BACK MON - FRI
--- NOTE | 2020-07-01 14:11 | NUR ---
MACHINIST HELPER MARINE NOTES SEEN AND EVALUATED BY DR FOFANA , DISCUSSED LABS , CHEST XRAY , PT CURRENTLY ON 6LPM MASK SPO2 OF 100% MOUTH BREATHER , CONGESTED WITH NO SIGNS OF DISTRESS , AFEBRILE , VS STABLE , VERIFIED WITH MD IF PATIENT CAN BE DOWNGRADED TO LOWER LEVEL OF CARE AND DEEP SUCTION PRN , PER MD OK TO DOWNGRADE AND DEEP SUCTIONING PRN
--- NOTE | 2020-07-01 14:17 | NUR ---
PHOTO MANAGER NOTES RT DONG AT BEDSIDE FOR DEEP SUCTIONING , WILL CONTINUE TO MONITOR .
[2020-07-01] MEDS: SOD FERRIC GLUC 125 MG in IV NS 0.9% 100 ML IV SCH (14:48)
--- NOTE | 2020-07-01 16:12 | NUR ---
COMMERCIAL COLLECTIONS SPECIALIST NOTES PAGED DR EMERY REGARDING PT COMPLAINING OF PAIN , PT ABLE TO NOD WHEN ASKED IF SHE WAS EXPERIENCING PAIN BUT UNABLE TO LOCATE WHERE THE PAIN IS , ST 130'S ON BEDSIDE MONITOR , PER MD START PT ON NORCO 5-325MG PRN Q4 . ORDER CARRIED OUT
[2020-07-01] MEDS: HYDROCODONE/APAP 5/325MG TABLET PO PRN ×2 (16:29→22:22)
--- NOTE | 2020-07-01 17:12 | NUR ---
NURSERY MANAGER NOTES RT ISAAC AT BEDSIDE DEEP SUCTIONED PT , BLOODY THICK SECRETIONS WITH CLOT NOTED UPON SUCTIONING , SPO2 OF 100% VIA SIMPLE MASK @ 6LPM ,BP OF 122/71 , RR 22-25CPM , ST 150'S ON BEDSIDE MONITOR , WILL CONTINUE TO MONITOR , HOB @ 45 , WILL CONTINUE TO MONITOR
--- NOTE | 2020-07-01 17:49 | NUR ---
TIRE INSTALLER NOTES NOTIFIED DR FOFANA THAT TRANSFER TO LOWER LEVEL OF CARE WAS HELD , PT REMAINS CONGESTED , BLOODY OUTPUT NOTED UPON DEEP SUCTIONING MODERATE IN AMOUNT , CURRENTLY ON 6LPM MASK WITH SPO2 OF 95% , RR 25-26CPM , BP OF 125/65 , HR OF 150BPM , WITH NO SIGNS OF DISTRESS , AWARE
--- NOTE | 2020-07-01 18:53 | NUR ---
MARKETING ADMINISTRATIVE ASSISTANT NOTES PATIENT RESTING ON BED , , NOT IN ACUTE DISTRESS , RESPIRATIONS EVEN AND UNLABORED WITH SPO2 OF 100% VIA 6LPM SIMPLE MASK , ST 132 ON BEDSIDE MONITOR , GT PATENT AND INTACT WITH TWO COLBY @ 25ML/HR WITH NO RESIDUALS NOTED , FC DRAINING VIA GRAVITY WITH CLEAR YELLOW URINE , DIMA ML WITH NS @ TKO , ALL NEEDS ATTENDED , REPORT GIVEN TO YULIET FOR CONTINUITY OF CARE
[2020-07-01] MEDS: LORAZEPAM INJ 2 MG/ML VIAL IV PRN (20:18)
--- NOTE | 2020-07-01 20:20 | NUR ---
DATA COMMUNICATIONS TECHNICIAN NOTES PATIENT NOTED TO DESAT TO MID 80s, CRACKLES NOTED UPON AUSCULTATION OF LUNG BASES, AUDIBLE GURGLING HEARD WITHOUT AUSCULTATION. DEEP NT SUCTIONING PERFORMED BY RT KNUTSON. NOTED WITH SMALL AMOUNT OF BLOODY RED SECRETIONS. NOTED IMPROVEMENT IN LUNG SOUNDS IMMEDIATELY AFTER DEEP SUCTIONING, BUT PATIENT NOW AGITATED. ATTEMPTED TO REPOSITION FOR COMFORT, BUT PATIENT STILL AGITATED, HR ELEVATED TO THE 140s. ATIVAN 1MG IV ADMINISTERED ORDERED. WILL MONITOR THE PATIENT CLOSELY
--- NOTE | 2020-07-01 22:22 | NUR ---
REORDERING CLERK NOTES AFTER REPOSITIONING, PATIENT'S HR ELEVATED TO 150s AND SUSTAINING. PATIENT WITH NOTED FACIAL GRIMACE, INDICATIVE OF PAIN, NODDING YES WHEN ASKED IF IN PAIN. NORCO ADMINSITERED ORDERED FOR PAIN. WILL MONITOR CLOSELY
--- NOTE | 2020-07-01 23:28 | NUR ---
INTEGRATED CIRCUIT IC LAYOUT DESIGNER NOTES PATIENT'S HR NOTED TO BE ELEVATED IN THE 120s-150s SINCE 1600 AFTER DEEP NT SUCTION. DURING REPOSITONING AND DEEP SUCTION, HR INCREASES TO 150BPM, BUT GOES BACK DOWN TO 120s AFTER ADMINISTRATION OF PAIN MEDICATION OR ATIVAN. DR ABDI NOTIFIED THAT THE HR SUSTAINS 120s-140s WHILE PATIENT IS RESTING. PER DR ABDI, GIVE LABETALOL 10MG IV PUSH ONE TIME. ORDER READ BACK FOR CLAIRIFCATION. WILL CARRY OUT NEW ORDERS AND MONITOR CLOSELY
[2020-07-01] MEDS ORDERED: LABETALOL 20 MG/4 ML VIAL IV ONE (23:30)
[2020-07-01] MEDS ORDERED: LABETALOL HCL IV 100MG VIAL ONE (23:34)
[2020-07-02] VITALS (24 sets, daily range): BP systolic 110–157; BP diastolic 49–108
--- NOTE | 2020-07-02 | NUR ---
ASSISTANT TECHNICIAN NOTES AFTER LABETALOL 10 MG IV PUSH, NOTED RHYTHM CHANGE FROM AFIB 130 BPM TO SINUS RHYTHM IN THE 80s. WILL CONTINUE TO MONITOR THE PATIENT
[2020-07-02] MEDS ORDERED: LABETALOL 20 MG/4 ML VIAL IV PRN (01:30)
[2020-07-02 01:40] LABS: BASOPHILS % (AUTO) 0.1 % (0.0-2.0); EOSINOPHILS % (AUTO) 0.3 % (0.0-6.0); HEMATOCRIT 29 % (33-45); HEMOGLOBIN 9.3 g/dL (11.5-14.8); LYMPHOCYTES # (AUTO) 0.4 /CMM (0.8-4.8); MEAN CORPUSCULAR HGB CONC 33 g/dl (31.0-36.0); MEAN CORPUSCULAR VOLUME 93 fL (82-100); MONOCYTES # (AUTO) 0.9 /CMM (0.1-1.30); MONOCYTES % (AUTO) 4.3 % (2.0-12.0); NEUTROPHILS # (AUTO) 18.8 /CMM (1.8-8.9); NEUTROPHILS % (AUTO) 93.3 % (43.0-81.0); PLATELET COUNT (AUTO) 288 /CMM (150-450); RED BLOOD CELL COUNT(AUTO) 3.05 MIL/uL (4.0-5.2); WHITE BLOOD COUNT (AUTO) 20.1 K/uL (4.3-11.0)
[2020-07-02 01:56] LABS: CALCIUM, SERUM 7.5 mg/dL (8.5-10.1); CARBON DIOXIDE 27 mmol/L (21-32); CHLORIDE 113 mmol/L (98-107); CREATININE 1.5 mg/dL (0.6-1.3); GLUCOSE 124 mg/dL (74-106); MAGNESIUM 2.2 mg/dL (1.8-2.4); POTASSIUM 3.8 mmol/L (3.5-5.1); SODIUM SERUM 146 mmol/L (136-145); UREA NITROGEN, BLOOD 69 mg/dL (7-18)
--- NOTE | 2020-07-02 02:13 | NUR ---
BURRING WHEEL OPERATOR NOTES IV FLUIDS D5W @ 75ML/HR COMPLETED. AM LABS DRAWN EARLY, SODIUM LEVEL NOW 146, PREVIOUSLY 154. LABS RELAYED TO DR ABDI. PER DR ABDI, DC IV FLUIDS, BUT CONTINUE FREE WATER FLUSH VIA GTUBE 200ML [id number]. ORDERS READ BACK FOR CLARIFICATION . WILL CARRY OUT ORDERS AND MONITOR CLOSELY
[2020-07-02] MEDS: LORAZEPAM INJ 2 MG/ML VIAL IV PRN ×4 (02:24→20:33)
[2020-07-02 02:45] LABS: LYMPHOCYTES % (MANUAL) 3 % (16-48); MONOCYTES % (MANUAL) 3 % (0-11.0); NEUTROPHILS % (MANUAL) 94 (42-76)
--- NOTE | 2020-07-02 04:00 | NUR ---
LINER ROLL CHANGER NOTES FULL BED BATH RENDERED, WOUND CARE DONE PRESCRIBED, PATIENT TOLERATED WELL. WILL CONTINUE TO MONITOR
[2020-07-02 04:40] LABS: CREATININE, URINE 40.1 MG/DL (30.0-125.0); URINE TOTAL PROTEIN 147.6 mg/dL (0-11.9)
[2020-07-02] MEDS: TWOCAL HN 1,000 ML LIQUID GT PRN (06:27)
[2020-07-02] MEDS: IV NS 0.9% 250 ML IV PRN ×2 (06:27→15:49)
[2020-07-02] MEDS ORDERED: LABETALOL HCL IV 100MG VIAL IV PRN (06:30)
--- NOTE | 2020-07-02 07:00 | NUR ---
HOSIERY LOOPER CLOSING NOTES PATIENT SLEPT WELL SINCE LAST NOTE, NO MORE EPISODES OF AGITATION NOTED. FREQUENT ORAL CARE RENDERED PATIENT'S MOUTH NOTED TO BE COVERED WITH DRY BLOOD. AFTER FREQUENT ORAL CARE, BREATHING EVEN AND NONLABORED. PATIENT REQUIRED NT SUCTION X1 THOUGHOUT SHIFT, AND WAS TITRATED DOWN TO SIMPLE MASK @ 6LPM. WILL ENDORSE THE PATIENT TO THE DAY SHIFT NURSE FOR NORIS
--- NOTE | 2020-07-02 07:50 | NUR ---
PRODUCT EXAMINER NOTES RECEIVED PATIENT IN THE BED, A/O X1, HARD TO UNDERSTAND, ON MASK 6L NO ACUTE RESPIRATORY DISTRESS, PATIENT MOUTH BREATHER, MOUTH OPEN ALL THE TIME, ALSO RT WITH PATIENT GIVING BREATHING TREATMENT, EDUCATED PATIENT TO BREATH THROUGH THE NOSE, V/S STABLE. RECHECKED BOTH WRIST SOFT RESTRAIN FOR CIRCULATION. PATIENT TOLERATING GTF WELL, NO RESIDUAL, INFUSING TWOCAL 25 ML/HR INTACT, KEEP HOB ELEVATED FOR ASPIRATION PRECAUTION. DUE MEDICATION GIVEN, MOUTH CARE DONE. ASSIST TURN AND REPOSTION Q 2HR, EDEMA BILATERAL LOWER EXTREMITIES, AND UPPER ARMS. PICC LINE ON RIGHT UA INTACT INFUSIN TKO 10 ML/HR.. WILL CONTINUED MONITORING.
--- NOTE | 2020-07-02 08:00 | NUR ---
PROJECT ANALYST NOTES FLASHED Q 4 HR 200 ML OF FREE WATER PRESCRIBED. MEDICATION ADMINISTERED WELL. SEEN PATIENT MINING TECHNICIAN, NO NEW ORDERS AT THIS TIME.
[2020-07-02] MEDS: MEROPENEM 500 MG in IV NS 0.9% 50 ML IV SCH ×2 (09:04→20:29)
[2020-07-02] MEDS: hydrALAZINE HCL 50 MG TABLET PO SCH ×3 (09:05→16:53)
[2020-07-02] MEDS: PANTOPRAZOLE 40 MG/PACK PACK GT SCH ×2 (09:05→20:28)
[2020-07-02] MEDS: NITROGLYCERIN 30 GM TUBE TP SCH ×2 (09:05→20:28)
[2020-07-02] MEDS: DAKINS QUARTER STRENGTH (0.125%) 480 ML BOTTLE TOP SCH (09:06)
[2020-07-02] MEDS: LEVOTHYROXINE SODIUM 50 MCG TABLET GT SCH (09:07)
[2020-07-02] MEDS: LINEZOLID RTU BAG 600 MG in PREMIX 1 EA IV SCH ×2 (09:07→22:00)
[2020-07-02] MEDS: MUPIROCIN OINT 2% 22 GM TUBE NS SCH ×2 (09:07→21:00)
--- NOTE | 2020-07-02 09:28 | NUR ---
icu specialist notes administered Ativan 1 mg/ml iv push for anxiety bp 143/ 108, p-115, patient trying to remove facial mask, and GT.
[2020-07-02] MEDS: HYDROCODONE/APAP 5/325MG TABLET PO PRN (12:57)
--- NOTE | 2020-07-02 12:57 | NUR ---
rn notes administered narco 5/325 mg po prn for generalized pain 02/10, bp 118/58, p-105, and titrated o2 4l nc, will follow.
--- NOTE | 2020-07-02 17:48 | NUR ---
rn notes administered Ativan 1mg/ml iv push for anxiety, bp-129/59, p-107, will continued monitoring.
--- NOTE | 2020-07-02 18:42 | NUR ---
WHANAU SUPPORT WORKER NOTES MEDICATION WERE ADMINISTERED FOR ANXIETY EFFECTIVE, DUE MEDICATION ADMINISTERED, IV ACCESS ON RIGHT UA PICC LINE INTACT INFUSING TKO 10ML/HR. PATIENT TOLERATED GTF WELL NO RESIDUAL, NEEDS ATTENDED AND ANTICIPATED. KEEP HOB ELEVATED FOR ASPIRATION PRECAUTION, SUCTIONED, MOUTH CARE DONE ASSIST TURN AND REPOSTION Q 2 HR. ENDORSED ONCOMING NIRE FOLLOW NORIS.
[2020-07-03] VITALS (25 sets, daily range): BP systolic 98–161; BP diastolic 41–79
[2020-07-03] MEDS: LORAZEPAM INJ 2 MG/ML VIAL IV PRN ×6 (00:07→22:41)
[2020-07-03] MEDS: HYDROCODONE/APAP 5/325MG TABLET PO PRN ×2 (01:07→23:52)
--- NOTE | 2020-07-03 04:00 | NUR ---
WASH DRILLER NOTES DEEP NT SUCTION PERFORMED BY RT KNUTSON, 3RD TIME THIS SHIFT. PATIENT TOLERATED WELL, NOTED WITH MODERATE AMOUNT OF THICK, BLOODY SECRETIONS. PATIENT REMAINS ON NASAL CANNULA @ 5LPM WITH HUMIDIFIER, WITH IMPROVEMENT OF BREATH SOUNDS AFTER SUCTION. WILL CONTINUE TO MONITOR
[2020-07-03 04:37] LABS: BASOPHILS % (AUTO) 0.1 % (0.0-2.0); EOSINOPHILS % (AUTO) 1.2 % (0.0-6.0); HEMATOCRIT 28 % (33-45); LYMPHOCYTES # (AUTO) 0.5 /CMM (0.8-4.8); LYMPHOCYTES % (AUTO) 2.8 % (20.0-44.0); MEAN CORPUSCULAR HGB CONC 33 g/dl (31.0-36.0); MEAN CORPUSCULAR VOLUME 94 fL (82-100); MONOCYTES # (AUTO) 0.8 /CMM (0.1-1.30); MONOCYTES % (AUTO) 4.8 % (2.0-12.0); NEUTROPHILS # (AUTO) 15.9 /CMM (1.8-8.9); NEUTROPHILS % (AUTO) 91.1 % (43.0-81.0); PLATELET COUNT (AUTO) 275 /CMM (150-450); RED BLOOD CELL COUNT(AUTO) 2.93 MIL/uL (4.0-5.2); WHITE BLOOD COUNT (AUTO) 17.4 K/uL (4.3-11.0)
[2020-07-03 04:48] LABS: ALANINE AMINOTRANSFERASE 30 U/L (12-78); ALBUMIN 1.5 g/dL (3.4-5.0); ALKALINE PHOSPHATASE 95 U/L (46-116); ASPARTATE AMINOTRANSFERASE 34 U/L (15-37); BILIRUBIN,TOTAL 0.4 mg/dL (0.2-1.0); CALCIUM, SERUM 7.5 mg/dL (8.5-10.1); CARBON DIOXIDE 27 mmol/L (21-32); CHLORIDE 111 mmol/L (98-107); CREATININE 1.6 mg/dL (0.6-1.3); GLUCOSE 98 mg/dL (74-106); MAGNESIUM 2.1 mg/dL (1.8-2.4); PHOSPHORUS 2.9 mg/dL (2.5-4.9); POTASSIUM 3.8 mmol/L (3.5-5.1); SODIUM SERUM 146 mmol/L (136-145); TOTAL PROTEIN, SERUM 5.1 g/dL (6.4-8.2); UREA NITROGEN, BLOOD 59 mg/dL (7-18)
[2020-07-03] MEDS: IV NS 0.9% 250 ML IV PRN (05:45)
[2020-07-03] MEDS: TWOCAL HN 1,000 ML LIQUID GT PRN (06:30)
--- NOTE | 2020-07-03 07:30 | NUR ---
HOME APPRAISER AM NOTES RECEIVED PATIENT IN THE BED, A/O X1, OBEYS SIMPLE COMMANDS, ON NC AT 5L, NO ACUTE RESPIRATORY DISTRESS, PATIENT MOUTH BREATHER, MOUTH OPEN ALL THE TIME, AFIB 90s, NO SIGNS OF DISCOMFORT, NO GRIMACING, DIMA PICC LINE WITH CDI DRESSINGS, NS TKO, GTF AT 25 ML/HR, CHECKED FOR PLACEMENT, O RESIDUAL, WEISS CATH IN PLACE, RECHECKED BOTH WRIST SOFT RESTRAINT FOR CIRCULATION. KEEP HOB ELEVATED FOR ASPIRATION PRECAUTION. MOUTH CARE DONE. ASSIST TURN AND REPOSITION Q 2HR, SEE NURSING FLOWSHEET FOR SKIN ISSUES. EDEMA BILATERAL LOWER EXTREMITIES, AND UPPER ARMS. SAFETY MEASURES IN PLACE, BED LOW LOCKED, CALL LIGHT WITHIN REACH. WILL CONTINUE MONITORING.
[2020-07-03] MEDS: LEVOTHYROXINE SODIUM 50 MCG TABLET GT SCH (08:33)
[2020-07-03] MEDS: LINEZOLID RTU BAG 600 MG in PREMIX 1 EA IV SCH ×2 (08:33→21:47)
[2020-07-03] MEDS: PANTOPRAZOLE 40 MG/PACK PACK GT SCH ×2 (08:33→20:26)
[2020-07-03] MEDS: MEROPENEM 500 MG in IV NS 0.9% 50 ML IV SCH ×2 (08:33→20:26)
[2020-07-03] MEDS: NITROGLYCERIN 30 GM TUBE TP SCH ×2 (08:37→20:51)
[2020-07-03] MEDS: hydrALAZINE HCL 50 MG TABLET PO SCH ×3 (08:37→17:28)
[2020-07-03] MEDS: DAKINS QUARTER STRENGTH (0.125%) 480 ML BOTTLE TOP SCH (08:38)
--- NOTE | 2020-07-03 11:00 | NUR ---
RN NOTES RECEIVED PATIENT ON BED, A/O X1, DOS NOT FOLLOW COMMAND , RESTLESS , ON NC AT 5L , A. FIB ON MONITOR , HR IN 110'S, R UA PICC LINE WITH CDI DRESSINGS, NS TKO, GTF AT 25 ML/HR, CHECKED FOR PLACEMENT, ON RESIDUAL NOTED, WEISS CATH IN PLACE, RECHECKED BOTH WRIST SOFT RESTRAINT FOR CIRCULATION. KEEP HOB ELEVATED FOR ASPIRATION PRECAUTION. EDEMA NOTED ON BILATERAL LOWER EXTREMITIES, AND UPPER ARMS. SAFETY MEASURES IN PLACE, BED LOCKED AND IN LOWEST POSITION, CALL LIGHT WITHIN EASY REACH. WILL CONTINUE TO MONITOR .
--- NOTE | 2020-07-03 11:00 | NUR ---
POULTRY PINNER NOTES DUE MEDS GIVEN. TURNED AND REPOSITIONED. PRESCRIBED WOUND CARE DONE. AM CARE DONE. REPORT GIVEN TO BARRY FOR NORIS
--- NOTE | 2020-07-03 15:00 | NUR ---
RN NOTES PT STABLE , NT SUCTIONING DONE, MODERATED AMOUNT OF SECRETION SUCTIONED OUT , CONTINUE TO MONITOR.
--- NOTE | 2020-07-03 18:07 | NUR ---
RN NOTES PT REMAINS STABLE, ON 5 L O2 N/C , NO DISTRESS NOTED , TOLERATING TF AT 25CC/HR WELL, SR UP x3, CALL LIGHT WITHIN EASY REACH, BED LOCKED AND IN LOWEST POSITION, WILL ENDORSE TO GATE WATCHMAN NURSE FOR CONTINUITY OF CARE .
--- NOTE | 2020-07-03 20:00 | NUR ---
SKIP HOIST OPERATOR NOTES PATIENT NOTED WITH AUDIBLE GURGLING OF SECRETIONS WITHOUT USE OF STETHOSCOPE, MOUTH SUCTIONED, NOTED WITH BLOODY SECRETIONS WITH CLOTS. CRACKLES IN BILATERAL BASES NOTED UPON AUSCULTATION. DEEP NT SUCTION PERFORMED BY RT KNUTSON. PATIENT TOLERATED FAIRLY, NOTED WITH SMALL AMOUNT OF THICK, BLOODY SECRETIONS. PATIENT REMAINS ON NASAL CANNULA @ 5LPM WITH HUMIDIFIER. WILL ATTEMPT TO SUCTION AGAIN AT LATER TIME.
--- NOTE | 2020-07-03 22:30 | NUR ---
ORTHOPEDIC DESIGNER NOTES PATIENT NOTED WITH AUDIBLE GURGLING OF SECRETIONS WITHOUT USE OF STETHOSCOPE. CRACKLES IN BILATERAL BASES NOTED UPON AUSCULTATION. DEEP NT SUCTION PERFORMED BY RT KNUTSON. PATIENT TOLERATED WELL, NOTED WITH MODERATE AMOUNT OF THICK, BLOODY SECRETIONS. PATIENT REMAINS ON NASAL CANNULA @ 5LPM WITH HUMIDIFIER, WITH IMPROVEMENT OF BREATH SOUNDS AFTER SUCTION. WILL CONTINUE TO MONITOR
[2020-07-04] VITALS (24 sets, daily range): BP systolic 106–169; BP diastolic 38–88
--- NOTE | 2020-07-04 | NUR ---
WOUND/OSTOMY NURSE NOTES PATIENT NOTED WITH LARGE BM X1. FULL BED BATH RENDERED, WOUND CARE DONE ORDERED, PATIENT TOLERATED WELL. WILL CONTINUE TO MONITOR
[2020-07-04] MEDS: LORAZEPAM INJ 2 MG/ML VIAL IV PRN ×4 (02:20→23:21)
[2020-07-04] MEDS: TWOCAL HN 1,000 ML LIQUID GT PRN (06:01)
[2020-07-04] MEDS: IV NS 0.9% 250 ML IV PRN (06:01)
--- NOTE | 2020-07-04 06:30 | NUR ---
MORTGAGE SALES MANAGER NOTES PATIENT NOTED TO WAKE UP, COUGHING, UNABLE TO CLEAR SECRETIONS. DEEP NT SUCTION DONE, BUT PATIENT BECAME AGITATED AFTERWARD. ATIVAN ADMINISTERED ORDERED. WILL MONITOR CLOSELY AND ENDORSE THE PATIENT TO THE AM SHIFT NURSE FOR CONTINUITY OF CARE
--- NOTE | 2020-07-04 07:15 | NUR ---
ELEVATOR OPERATOR FREIGHT NOTES RECEIVED PATIENT AWAKE ALERT X1 , FOLLOW COMMANDS , NOT IN ACUTE DISTRESS , RESPIRATIONS EVEN AND UNLABORED WITH SPO2 OF 98% VIA 5LPM NC , AFIB 112 ON BEDSIDE MONITOR , GT PATENT AND INTACT WITH TWO COLBY @ 25ML/HR WITH NO RESIDUALS NOTED , FC DRAINING VIA GRAVITY WITH CLEAR YELLOW URINE , DIMA PICCLINE WITH NS @ TKO , ALL NEEDS ATTENDED , WILL CONTINUE TO MONITOR ,
[2020-07-04] MEDS: HYDROCODONE/APAP 5/325MG TABLET PO PRN ×2 (07:55→21:54)
[2020-07-04] MEDS: PANTOPRAZOLE 40 MG/PACK PACK GT SCH ×2 (08:15→20:28)
[2020-07-04] MEDS: MEROPENEM 500 MG in IV NS 0.9% 50 ML IV SCH (08:15)
[2020-07-04] MEDS: hydrALAZINE HCL 50 MG TABLET PO SCH ×3 (08:16→16:01)
[2020-07-04] MEDS: NITROGLYCERIN 30 GM TUBE TP SCH ×2 (08:16→20:30)
[2020-07-04] MEDS: LEVOTHYROXINE SODIUM 50 MCG TABLET GT SCH (08:16)
[2020-07-04] MEDS: DAKINS QUARTER STRENGTH (0.125%) 480 ML BOTTLE TOP SCH (08:17)
[2020-07-04] MEDS: LINEZOLID RTU BAG 600 MG in PREMIX 1 EA IV SCH ×2 (09:34→20:28)
--- NOTE | 2020-07-04 12:40 | NUR ---
HEAT TREAT PULLER NOTES PAGED DR EMERY , DISCUSSED REGARDING DAUGHTER (MARTY) PLAN OF TRANSFERRING PT TO [facility] UNDER DR SHAH , NUMBE GIVEN TO DR EMERY , DISCUSSED PT IS STABLE AT THIS TIME , NO ACUTE EVENTS NOTED , STAYED IN ICU DUE TO CONGESTION AND SECRETIONS ,
--- NOTE | 2020-07-04 16:49 | NUR ---
DIE HARDENER NOTES VERIFIED PREVIOUS ORDER OF ATIVAN 1MG Q1 PRN ORDER TO DR HIGUERA , PER MD CHANGE FREQUENCY TO Q8 PRN , ORDER CARRIED OUT
[2020-07-04] MEDS ORDERED: LORAZEPAM INJ 2 MG/ML VIAL IV PRN (17:00)
--- NOTE | 2020-07-04 17:00 | NUR ---
MANAGER ACQUISITION NOTES NGT FEEDING STARTED , GLUCERNA @ 15 , TITRATE TO 35 TOLERATED , WILL CONTINUE TO MONITOR
--- NOTE | 2020-07-04 19:13 | NUR ---
MINERAL TECHNOLOGIST NOTES PATIENT STABLE AT THIS TIME , AWAKE ALERT X1 , FOLLOW COMMANDS , NOT IN ACUTE DISTRESS , RESPIRATIONS EVEN AND UNLABORED WITH SPO2 OF 98% VIA 5LPM NC , AFIB 115 ON BEDSIDE MONITOR , GT PATENT AND INTACT WITH TWO COLBY @ 25ML/HR WITH NO RESIDUALS NOTED , FC DRAINING VIA GRAVITY WITH CLEAR YELLOW URINE , DIMA PICCLINE WITH NS @ TKO , ALL NEEDS ATTENDED , REPORT GIVEN TO YULIET FOR CONTINUITY OF CARE
--- NOTE | 2020-07-04 23:09 | NUR ---
CLEAN UP WORKER NOTE NORCO EFFECTIVE FOR PAIN, BUT PATIENT CURRENTLY AGITATED AND RESTLESS. ORDER FOR ATIVAN 1MG IV IS Q8H, LAST DOSE GIVEN AT 1800. DR ROCHA NOTIFIED REGARDING PATIENTS CURRENT BEHAVIOR, WITH NEW ORDER TO CHANGE FREQUENCY TO Q4H. WILL CARRY OUT NEW ORDERS AND MONITOR CLOSELY
[2020-07-05] VITALS (20 sets, daily range): BP systolic 124–166; BP diastolic 53–93
[2020-07-05] MEDS: IV NS 0.9% 250 ML IV PRN (01:57)
[2020-07-05 04:51] LABS: BASOPHILS # (AUTO) 0.1 /CMM (0.0-0.2); BASOPHILS % (AUTO) 0.4 % (0.0-2.0); EOSINOPHILS % (AUTO) 2.3 % (0.0-6.0); HEMATOCRIT 27 % (33-45); HEMOGLOBIN 8.9 g/dL (11.5-14.8); LYMPHOCYTES # (AUTO) 0.5 /CMM (0.8-4.8); MEAN CORPUSCULAR HGB CONC 33 g/dl (31.0-36.0); MEAN CORPUSCULAR VOLUME 94 fL (82-100); MONOCYTES # (AUTO) 0.8 /CMM (0.1-1.30); NEUTROPHILS # (AUTO) 14.3 /CMM (1.8-8.9); NEUTROPHILS % (AUTO) 89.3 % (43.0-81.0); PLATELET COUNT (AUTO) 293 /CMM (150-450)
[2020-07-05] MEDS: LORAZEPAM INJ 2 MG/ML VIAL IV PRN ×2 (05:02→14:06)
[2020-07-05 05:04] LABS: CARBON DIOXIDE 25 mmol/L (21-32); CHLORIDE 107 mmol/L (98-107); CREATININE 1.8 mg/dL (0.6-1.3); GLUCOSE 74 mg/dL (74-106); MAGNESIUM 2.3 mg/dL (1.8-2.4); PHOSPHORUS 3.7 mg/dL (2.5-4.9); POTASSIUM 4.1 mmol/L (3.5-5.1); SODIUM SERUM 143 mmol/L (136-145); UREA NITROGEN, BLOOD 55 mg/dL (7-18)
--- NOTE | 2020-07-05 05:15 | NUR ---
EDGING MACHINE OPERATOR NOTES ATIVAN 1MG IV PUSH ADMINISTERED FOR AGITATION, PATIENT RESTLESS, HR UP TO 120-130 BPM. WILL MONITOR CLOSELY
--- NOTE | 2020-07-05 07:00 | NUR ---
REAMING MACHINE OPERATOR FOR PLASTIC CLOSING NOTES PATIENT RESTING IN BED, MILDLY AGITATED, IMPROVED AFTER ATIVAN IV. PATIENT REMAINS ON O2 VIA NC @ 5LPM, TOLERATING WELL, NO DEEP SUCTION REQUIRED THROUGHOUT SHIFT. WILL ENDORSE THE PATIENT TO THE AM SHIFT NURSE FOR NORIS
[2020-07-05] MEDS: NITROGLYCERIN 30 GM TUBE TP SCH ×2 (08:29→22:53)
[2020-07-05] MEDS: LEVOTHYROXINE SODIUM 50 MCG TABLET GT SCH (08:30)
[2020-07-05] MEDS: LINEZOLID RTU BAG 600 MG in PREMIX 1 EA IV SCH ×2 (08:30→22:33)
[2020-07-05] MEDS: PANTOPRAZOLE 40 MG/PACK PACK GT SCH ×2 (08:30→22:33)
[2020-07-05] MEDS: DAKINS QUARTER STRENGTH (0.125%) 480 ML BOTTLE TOP SCH (08:31)
[2020-07-05] MEDS: hydrALAZINE HCL 50 MG TABLET PO SCH ×3 (08:34→17:10)
[2020-07-05] MEDS: TWOCAL HN 1,000 ML LIQUID GT PRN (14:06)
--- NOTE | 2020-07-05 15:40 | NUR ---
f/u with pathology - spoke to Beka who states there is no specimen Addendum: 07/05/20 at 1553 by JAMAAL STREETER RN to clarify: per Mabel PA documentation 06/27 sacral bone biopsy was taken Addendum: 07/05/20 at [address]AL [address]REETER RN orders for pathology not placed and specimen not sent to pathology because per Mabel "wound cx on bone is enough for ID to treat for osteo, bone piece was in wound cx tube". Dr. Negrete notified as he placed orders for f/u on pathology.
--- NOTE | 2020-07-05 19:00 | NUR ---
ICU -> 329 Per case management, no beds available at [facility] (family wanted to transfer) - family aware. Cleared by pul for lower level of care. Deep suction x1 this shift with small amount of thick pink/jacques secretion SPO2 prior 89% -> 100% post suction. Patient remains awake, alert, oriented to self only, verbalizes wanting to take restraints off. No s/s stroke noted, no slurred speech, no uneven smile. denies one sided weakness or headache. Agitated sometimes -> HR increases + artifact on monitor. ST HR 90-120s. PEG in place, stomach soft and nontender. No residual from feeding aspirated. Jones draining cloudy yellow urine with sediment. BUE BLE swelling, MDs aware. doppler x2 completed. Wound care completed, turned per protocol, swollen arms w/ weeping edema. Mittens on bilaterally, patient pulling at medical equipment. DIMA PICC intact, no s/s infiltration. No belongings at bedside Addendum: 07/05/20 at 2035 [address]AMAAL STREETER RN contact isolation.
--- NOTE | 2020-07-05 19:30 | NUR ---
RN NOTE NURSING REPORT RECEIVED FROM CHARLES BARBOUR, PATIENT AWAKE IN BED, ON SEMI PERALTA'S. PATIENT IN NO S/SX OF ACUTE DISTRESS AT THIS TIME. PATIENT'S BREATHING IS EVEN AND UNLABORED. PATIENT IS ON 5 L OF OXYGEN VIA NC, TOLERATING WELL, SATURATING AT 98%. PATIENT ON TELE MONITOR READING AFIB, HR IS 101. NOTED DIMA PICC LINE, ALL HUBS PATENT AND FLUSHING WELL, NO S/S OF INFECTION. EDEMA NOTED ON BUE. NOTED GTUBE INTACT, PLACEMENT WAS CHECKED BY ASPIRATION AND AUSCULTATION, NO RESIDUAL NOTED, WITH TUBE FEEDING OF TWOCALL REGULATED AT 25 ML/HR. WEISS CATHETER CONNECTED TO URINE BAG IN PLACE, DRAINING TO A CLEAR YELLOW OUTPUT. SAFETY MEASURES HAVE BEEN PROVIDED AND IMPLEMENTED. PATIENT BED ALARM IS ON. HEAD OF BED ELEVATED. BED IS LOCKED, IN LOWEST POSITION AND SIDE RAILS UP. CALL LIGHT WITHIN REACH OF THE PATIENT. WILL CONTINUE TO MONITOR AND REASSESS FOR ANY CHANGES. Addendum: 07/06/20 at 0054 by RAMON SANCHEZ RN NOTED BILATERAL MITTENS AT BEDSIDE, PATIENT HAS BEEN CALM AND COOPERATIVE, RN DOES NOT SEE THE NEED FOR RESTRAINTS AT THIS TIME. WILL CONTINUE TO MONITOR.
[2020-07-06] VITALS: BP_SYST 136; BP_SYST 138; BP_DIAS 67; BP_DIAS 80
[2020-07-06] MEDS: LORAZEPAM INJ 2 MG/ML VIAL IV PRN (01:29)
[2020-07-06 04:00] VITALS: BP 135/69
[2020-07-06 08:00] VITALS: BP 172/63
[2020-07-06] MEDS: PANTOPRAZOLE 40 MG/PACK PACK GT SCH ×2 (09:07→22:37)
[2020-07-06] MEDS: LEVOTHYROXINE SODIUM 50 MCG TABLET GT SCH (09:07)
[2020-07-06] MEDS: hydrALAZINE HCL 50 MG TABLET PO SCH ×3 (09:07→17:00)
[2020-07-06] MEDS: DAKINS QUARTER STRENGTH (0.125%) 480 ML BOTTLE TOP SCH (09:08)
[2020-07-06 10:28] LABS: BASOPHILS # (AUTO) 0.1 /CMM (0.0-0.2); BASOPHILS % (AUTO) 0.7 % (0.0-2.0); EOSINOPHILS % (AUTO) 3.2 % (0.0-6.0); HEMATOCRIT 30 % (33-45); HEMOGLOBIN 9.6 g/dL (11.5-14.8); LYMPHOCYTES # (AUTO) 0.4 /CMM (0.8-4.8); MEAN CORPUSCULAR HGB CONC 32 g/dl (31.0-36.0); MEAN CORPUSCULAR VOLUME 94 fL (82-100); MONOCYTES # (AUTO) 0.6 /CMM (0.1-1.30); MONOCYTES % (AUTO) 4.1 % (2.0-12.0); NEUTROPHILS # (AUTO) 12.3 /CMM (1.8-8.9); PLATELET COUNT (AUTO) 306 /CMM (150-450); RED BLOOD CELL COUNT(AUTO) 3.15 MIL/uL (4.0-5.2); WHITE BLOOD COUNT (AUTO) 13.8 K/uL (4.3-11.0)
[2020-07-06 10:36] LABS: CALCIUM, SERUM 8.1 mg/dL (8.5-10.1); CARBON DIOXIDE 24 mmol/L (21-32); CHLORIDE 106 mmol/L (98-107); CREATININE 1.7 mg/dL (0.6-1.3); GLUCOSE 104 mg/dL (74-106); SODIUM SERUM 139 mmol/L (136-145); UREA NITROGEN, BLOOD 48 mg/dL (7-18)
[2020-07-06] MEDS: LINEZOLID RTU BAG 600 MG in PREMIX 1 EA IV SCH ×2 (10:40→22:38)
[2020-07-06] MEDS: NITROGLYCERIN 30 GM TUBE TP SCH ×2 (10:40→23:52)
--- NOTE | 2020-07-06 11:22 | NUR ---
late note for 06/29/20: It is OK to stop Diprivan right away in order to extubate the patient per Dr Davis.
--- NOTE | 2020-07-06 14:30 | NUR ---
PATIENT GT WAS PULLED OUT. REINFORCED MITTENS AND APPLIED WEISS CATH TO KEEP IT OPEN. KRISHAN HAYWOOD MD.
--- NOTE | 2020-07-06 15:30 | NUR ---
AWA LITTLE REINSERTED GT AND ORDERED CHECK PLACEMENT WITH GASTROGRAFFIN.
[2020-07-06 16:00] VITALS: BP 92/44
--- NOTE | 2020-07-06 19:43 | NUR ---
PATIENT IN BED CALM AND RELAXED NO SIGNS OF DISTRESS. ON NC 5L TOLERATING WELL. PATIENT AWAKE MOUTH WORDS BUT AO X1-2. FC DRAINED 300ML OF CLOUDY YELLOW URINE. HAS BILATERAL HAND MITTENS IN PLACE. PENDING FOR GASTROGRAFFIN. KEPT EXTREMITIES ELEVATED. ALL DUE MEDS GIVEN. NO SIGNS OF PAIN OR DISCOMFORT. ENDORSED TO SCREW MACHINE HAND NURSE FOR NORIS,
--- NOTE | 2020-07-06 19:48 | NUR ---
MS RN OPENING NOTES PATIENT AWAKE IN BED. A/OX1-2. ON 5L NC WITH HUMIDIFIER; NO S/S OF ACUTE RESPIRATORY DISTRESS; BREATHING IS EVEN AND UNLABORED. BILATERAL HAND MITTENS PRESENT FOR PATIENT SAFETY. PER DAY SHIFT RN, GTUBE REINSERTED BY AWA LITTLE AND AWAITING GASTROGRAFFIN FOR PLACEMENT VERIFICATION. PICC LINE PRESENT ON RIGHT UPPER ARM, INTACT & PATENT WITH NS RUNNING TKO. WEISS CATH PRESENT AND DRAINING WELL. SAFETY MEASURES IN PLACE AND PATIENT'S NEEDS MET. BED LOCKED, HOB ELEVATED, SIDE RAILS X3, CALL LIGHT WITHIN REACH, ALARM ON. WILL CONTINUE TO MONITOR.
[2020-07-06] MEDS ORDERED: DIATR MEGLU/DIATRIZOATE SODIUM 30 ML BOTTLE (GASTROGRAPHIN) ONE (20:38)
[2020-07-06] MEDS: ACETYLCYSTEINE 10% SOLN 400 MG/4 ML VIAL NEB SCH (23:59)
[2020-07-07] MEDS: TWOCAL HN 1,000 ML LIQUID GT PRN (05:12)
--- NOTE | 2020-07-07 07:35 | NUR ---
RN Initial Noted: Received pt. awake on bed with oxygen at 5L via nasal cannula, pt. on Twocal Hn Liquid at 25 ml/hr. and with bilateral mittens. Pt.with NS at TKO and with PICC line at right UA. No distress noted and will continue to monitor. Addendum: 07/07/20 at 0822 by TARAH MUÑOZ RN Pt. with lópez cath with yellow urine output.
--- NOTE | 2020-07-07 07:57 | NUR ---
MS RN CLOSING NOTES PATIENT AWAKE. A/OX1-2. ON 5L NC WITH HUMIDIFIER; NO S/S OF ACUTE RESPIRATORY DISTRESS; BREATHING IS EVEN AND UNLABORED. BILATERAL HAND MITTENS PRESENT FOR PATIENT SAFETY. PICC LINE PRESENT ON RIGHT UPPER ARM, INTACT & PATENT WITH NS RUNNING TKO. GTUBE PRESENT WITH TWO COLBY RUNNING AT 25 ML/HR. WEISS CATH PRESENT AND DRAINING WELL. SAFETY MEASURES IN PLACE AND PATIENT'S NEEDS MET. BED LOCKED, HOB ELEVATED, SIDE RAILS X3, CALL LIGHT WITHIN REACH, ALARM ON. ENDORSED TO DAY SHIFT RN PLAN OF CARE.
[2020-07-07] MEDS: ACETYLCYSTEINE 10% SOLN 400 MG/4 ML VIAL NEB SCH ×2 (08:08→15:16)
[2020-07-07 08:46] VITALS: BP 155/66
[2020-07-07] MEDS: PANTOPRAZOLE 40 MG/PACK PACK GT SCH ×2 (08:55→21:28)
[2020-07-07] MEDS: LEVOTHYROXINE SODIUM 50 MCG TABLET GT SCH (08:55)
[2020-07-07] MEDS: hydrALAZINE HCL 50 MG TABLET PO SCH ×3 (08:55→16:29)
[2020-07-07] MEDS: NITROGLYCERIN 30 GM TUBE TP SCH ×2 (09:00→21:34)
[2020-07-07] MEDS: LINEZOLID RTU BAG 600 MG in PREMIX 1 EA IV SCH ×2 (09:52→21:27)
[2020-07-07] MEDS: DAKINS QUARTER STRENGTH (0.125%) 480 ML BOTTLE TOP SCH (10:12)
--- NOTE | 2020-07-07 10:37 | NUR ---
Dressing done and pt. repositioned q2hrs.
[2020-07-07] MEDS: IV NS 0.9% 250 ML IV PRN ×2 (12:32→12:33)
[2020-07-07 16:15] VITALS: BP 132/58
[2020-07-07 20:00] VITALS: BP 138/56
--- NOTE | 2020-07-07 20:30 | NUR ---
rn notes: noted large thigh hematoma. md aware, photos taken upon admission in pt's chart. per md notes, held anticoagulation. ble venous doppler negative.
[2020-07-07 21:34] VITALS: BP 125/55
--- NOTE | 2020-07-07 21:35 | NUR ---
RN NOTES: GTUBE PATENCY CHECK. PT ABDOMEN SOFT TO TOUCH WITH ACTIVE BOWEL SOUND HEARD UPON AUSCULTATION.GTUBE ABLE TO FLUSH WELL WITH WATER, NO RESISTANCE MET. DUE MEDS ADMINISTERED AT THIS TIME.
--- NOTE | 2020-07-07 22:30 | NUR ---
MUSIC ADAPTER: 1929: RECEIVED REPORT FROM TARAH BARBOUR. PT IN BED, A/O X1-2, ON 5L OXYGEN VIA NC RESPIRATIONS EVEN AND UNLABORED. HR NOTED TO BE 110, MADE AWARE, PT RECEIVING BREATHING TX Q4HRS. DIMA PICC LINE IN PLACED, TLC, ALL PORTS NOTED WITH GOOD BLOOD RETURN ABLE TO FLUSH WELL WITH 10CC NORMAL SALINE, ALL PLACED ON HL. WEISS CATHETER IN PLACED, BAG DRAINING VIA GRAVITY. 1999: PEG IN PLACED, HAIM TO FLUSH WELL WITH WATER, RECEIVING GTUBE FEEDING TWOCAL HN AT 25ML/[id number]. ASPIRATION PRECAUTION INITIATED, SUCTION SET UP SECURED. PT RECEIVED WITH BILATERAL HAND MITTENS IN PLACED. RADIAL PULSES PALPABLE AND INTACT, GOOD CAPILLARY REFILL NOTED, PT ABLE TO MOVE AND WIGGLE ARMS AND HANDS. RESTRAINT PROTOCOL FOLLOWED. 2199: ASSISTED BREAST WORKER IN PROVIDING BED BATH TO PT, WOUND TREATMENT PROVIDED. SAFETY PRECAUTIONS FOR FALL INITIATED, CALL LIGHT IN REACH, WILL CONTINUE MONITORING PT.
--- NOTE | 2020-07-07 23:54 | NUR ---
RN NOTES: ORAL SUCTION PERFORMED, NOTED THICK SMALL AMOUNT OF WINTERS COLORED SECRETIONS. APPEARS THAT SECRETIONS WERE STUCK IN THROAT AREA AND PT NOTED TO HAVE WEAK COUGH. CONTACTED RT TO DO DEEP SUCTIONING.
--- NOTE | 2020-07-08 00:40 | NUR ---
RN NOTES/PICC DRESSING CHANGE: PICC LINE DRESSING CHANGED PERFORMED AT THIS TIME. AFTER DRESSING CHANGED, GOOD BLOOD RETURN NOTED, ABLE TO FLUSH WELL WITH NS EACH PORT, NO RESISTANCE NOTED.
[2020-07-08] MEDS: ACETYLCYSTEINE 10% SOLN 400 MG/4 ML VIAL NEB SCH ×2 (01:14→08:00)
--- NOTE | 2020-07-08 01:20 | NUR ---
RN NOTES: AFTER RT SUCTION THE PT, NOTED PT NOSEBLEEDING. PRESSURED DRESSING APPLIED FOR 5MINUTES, BLEEDING STOP.
--- NOTE | 2020-07-08 03:34 | NUR ---
RN NOTES: ASSSITED SOFTWARE ENGINEERING MANAGER IN PROVIDING CHLORHEXIDINE BATH TO PT, PT HAS PICC LINE. COMPLETE LINEN CHANGE PROVIDED. WOUND TREATMENT PROVIDED.
[2020-07-08] MEDS: TWOCAL HN 1,000 ML LIQUID GT PRN (03:42)
--- NOTE | 2020-07-08 03:43 | NUR ---
rn notes: p;i;cc li;ne;; ;port/hub changed at this time
[2020-07-08 04:00] VITALS: BP 142/58
--- NOTE | 2020-07-08 05:05 | NUR ---
rn notes: problem encountered with gtube feeding and tubing. unfortunately, tubing and feeding malfunction, for some reason tubing changed 3x, including feeding pump (machine) and feeding itself. gtube ab;le to flush well, no resistance met, candace valve changed. unable to determine what was the problem why feeding/milk not dripping or priming at all.
--- NOTE | 2020-07-08 06:53 | NUR ---
RN NOTES: UP[ON SUCTIONING PT'S MOUTH NOTED SECRETIONS WITH BLOOD, ABOUT 50ML, NOTIFIED POWER PROJECT MANAGER MARY, MOUTH NOTED TO BE WITH MINIMAL BLEEDING. PT SOUNDS GURGLY, BUT PER RT NO DEEP SUCTIONING OR FORCEFUL SUCTIONING PT MOUTH ALREADY BLEEDING.
--- NOTE | 2020-07-08 06:56 | NUR ---
end of shift rpeort: pt remains a/o x1-2, on 5l oxygen via nc respirations evena nd unlabored. miriam picc line remains patent and flushing well, all ports with brisk blood return noted, kept on saline lock. gtube remains in placed, receiving twocal hn at 25ml/hr. pt remains with bilateral mittens in placed, radial pulses palpable and intact, with good capillary refill noted, pt able to move and wiggle hands and arms, no s/s of impediment in circultaion noted. bue and blw offloaded on pillows. am care wound care complete linen change provided. remains afebrile. plan of care: dc plan back to snf. continue zyvox. safety precautions for fall remains enggaged, call light in reach, will endorse to day rn for johnny.
--- NOTE | 2020-07-08 07:45 | NUR ---
rn on rounds finds pt. unchanged.t.feeding infusing,hob elevated.skin pale,warm and dry.side rails up as rn walking in to room.nurse could hear slight audible congestion.tube feeding at slow rate of 25 ml per hr.pt eyeing nurse walking in to .no vital signs yet.02 at 5l per nc.
[2020-07-08] MEDS ORDERED: EPINEPHRINE (1:10,000) SYRINGE 1 MG/10 ML DISP.SYRIN ONE (08:00)
--- NOTE | 2020-07-08 08:08 | NUR ---
rn out in [place] speaking to resp. tx regarding pt,both walking into rm to find pt. with no pulse,not breathing,extremly pale..code blue called.
--- NOTE | 2020-07-08 08:10 | NUR ---
code blue in progress,no vs attainable.bgl 28.apparent resp.arrest.
--- NOTE | 2020-07-08 08:14 | NUR ---
pt. pronounced.patricia liu bellows charger assembler present.
--- NOTE | 2020-07-08 08:20 | NUR ---
dr. rodriguez on the floor,in to see pt.
--- NOTE | 2020-07-08 08:35 | NUR ---
one legacy contacted as well as dtr.
--- NOTE | 2020-07-08 08:40 | NUR ---
reverberatory furnace supervisor yadiel aware of pt. expiration.
--- NOTE | 2020-07-08 08:40 | NUR ---
dtr. contacted regarding pt.and viewing.will not be in to see mom.states she will contact home to make arrangements.body prepared.
--- NOTE | 2020-07-08 09:00 | NUR ---
body transported to [facility] [place].
[2020-07-09] MEDS ORDERED: LEVOTHYROXINE SODIUM 75 MCG TABLET PO SCH (07:30)
== END 2020-07-08 08:30 | disposition expired | DRG 853 ==
LOC: EDBD 11:31 → ER 11:31 → TELE2 13:33 → MEDSG2 14:21 → TELE2 15:37 → ICU 18:24 → TELE 07-05 19:09 → MED 07-06 12:55
PROVIDERS: ADMIT Nurse Practitioner Acute Care; ATTEND Internal Medicine
PROC: 5A1955Z Respiratory Ventilation, Greater than 96 Consecutive Hours (ICD-10-PCS; principal; 2020-06-22)
PROC: 0BH18EZ Insertion of Endotracheal Airway into Trachea, Via Natural or Artificial Opening Endoscopic (ICD-10-PCS; 2020-06-22)
PROC: 02HV33Z Insertion of Infusion Device into Superior Vena Cava, Percutaneous Approach (ICD-10-PCS; 2020-06-23)
PROC: B548ZZA Ultrasonography of Superior Vena Cava, Guidance (ICD-10-PCS; 2020-06-23)
PROC: 0DJ08ZZ Inspection of Upper Intestinal Tract, Via Natural or Artificial Opening Endoscopic (ICD-10-PCS; 2020-06-26)
PROC: 0QB10ZZ Excision of Sacrum, Open Approach (ICD-10-PCS; 2020-06-27)
PROC: 0D20XUZ Change Feeding Device in Upper Intestinal Tract, External Approach (ICD-10-PCS; 2020-07-06)
PROC: 5A2204Z Restoration of Cardiac Rhythm, Single (ICD-10-PCS; 2020-07-08)
DX: A41.9 Sepsis, unspecified organism (principal); L89.154 Pressure ulcer of sacral region, stage 4; J96.01 Acute respiratory failure with hypoxia; N17.0 Acute kidney failure with tubular necrosis; R65.21 Severe sepsis with septic shock; J96.02 Acute respiratory failure with hypercapnia; J15.6 Pneumonia due to other Gram-negative bacteria; G92 Toxic encephalopathy; I50.43 Acute on chronic combined systolic (congestive) and diastolic (congestive) heart failure; N39.0 Urinary tract infection, site not specified; E87.1 Hypo-osmolality and hyponatremia; I48.92 Unspecified atrial flutter; E87.2 Acidosis; I13.0 Hypertensive heart and chronic kidney disease with heart failure and stage 1 through stage 4 chronic kidney disease, or unspecified chronic kidney disease; J98.11 Atelectasis; E87.0 Hyperosmolality and hypernatremia; Z16.12 Extended spectrum beta lactamase (ESBL) resistance; Z16.24 Resistance to multiple antibiotics; M46.28 Osteomyelitis of vertebra, sacral and sacrococcygeal region; J90 Pleural effusion, not elsewhere classified; Z79.890 Hormone replacement therapy; E03.9 Hypothyroidism, unspecified; M06.9 Rheumatoid arthritis, unspecified; F41.9 Anxiety disorder, unspecified; F03.90 Unspecified dementia, unspecified severity, without behavioral disturbance, psychotic disturbance, mood disturbance, and anxiety; E83.39 Other disorders of phosphorus metabolism; R13.10 Dysphagia, unspecified; E86.0 Dehydration; Z20.828 Contact with and (suspected) exposure to other viral communicable diseases; Y95 Nosocomial condition; Z93.1 Gastrostomy status; R33.9 Retention of urine, unspecified; Z88.1 Allergy status to other antibiotic agents; Z88.8 Allergy status to other drugs, medicaments and biological substances; Z79.51 Long term (current) use of inhaled steroids; Z79.899 Other long term (current) drug therapy; Z79.01 Long term (current) use of anticoagulants; Z79.52 Long term (current) use of systemic steroids; N18.9 Chronic kidney disease, unspecified; S70.12XA Contusion of left thigh, initial encounter; X58.XXXA Exposure to other specified factors, initial encounter; Y92.9 Unspecified place or not applicable; D63.8 Anemia in other chronic diseases classified elsewhere; F09 Unspecified mental disorder due to known physiological condition; E87.6 Hypokalemia; Z86.59 Personal history of other mental and behavioral disorders; I48.91 Unspecified atrial fibrillation; I70.0 Atherosclerosis of aorta; T17.990A Other foreign object in respiratory tract, part unspecified in causing asphyxiation, initial encounter; S81.812A Laceration without foreign body, left lower leg, initial encounter; S81.811A Laceration without foreign body, right lower leg, initial encounter; S51.811A Laceration without foreign body of right forearm, initial encounter; B96.89 Other specified bacterial agents as the cause of diseases classified elsewhere; M89.9 Disorder of bone, unspecified; K29.40 Chronic atrophic gastritis without bleeding; Z86.19 Personal history of other infectious and parasitic diseases; Z86.79 Personal history of other diseases of the circulatory system
CPT/HCPCS: 31720; 36415; 36569; 36600; 71045-TC; 74018; 80048-TC; 80053-TC; 80061-TC; 80076-TC; 80150; 80202-TC; 81001; 82272-TC; 82533; 82550-TC; 82570-TC; 82728-TC; 82803-TC; 82962-TC; 83540-TC; 83605-TC; 83735-TC; 83935-TC; 83970; 84100-TC; 84155; 84155-TC; 84165; 84300-TC; 84439-TC; 84443-TC; 84478-TC; 84484-TC; 85025-TC; 85027-TC; 85730-TC; 86850-TC; 87040-TC; 87070-TC; 87081-TC; 87086-TC; 87186-TC; 93307-TC; 93971-TC; 94003-TC; 94760-TC; 94799-TC; 99082-TC; A4216; A4217; A4624; A6253; A6403; A9563; C1751; C9113; C9803; G0378; J0171; J0278; J0282; J0330; J1720; J1956; J2020; J2060; J2185; J2370; J2543; J2916; J3370; J3480; J3490; J7030; J7040; J7050; J7060; J7070; P9016-BL; Q9963; U0003